=== PATIENT | male | born 1965 | race Caucasian/White ===

== ENCOUNTER 2020-08-24 14:04 | Outpatient (REF) | payer OTHER, SELFPAY | END 2020-08-24 14:05 | disposition home or self-care (01) | LOC: HO.HMGCLDS 14:04 | PROVIDERS: PCP Internal Medicine; Visit Provider Internal Medicine | DX: Z20.828 Contact with and (suspected) exposure to other viral communicable diseases (principal) | CPT/HCPCS: C9803; U0003 ==

== ENCOUNTER 2020-09-04 09:22 | Outpatient (REF) | payer OTHER, SELFPAY | END 2020-09-04 09:23 | disposition home or self-care (01) | LOC: HO.LAB 09:22 | PROVIDERS: PCP Internal Medicine; Visit Provider Internal Medicine | DX: Z20.828 Contact with and (suspected) exposure to other viral communicable diseases (principal) | CPT/HCPCS: C9803; U0003 ==

== ENCOUNTER 2021-01-10 06:18 | Outpatient (REF) | payer OTHER, SELFPAY ==
[2021-01-10 11:12] LABS: MANUAL DIFF FLAG NO
[2021-01-10 11:34] LABS: Glucose Urine UA NEG (NEG); Leukocyte Esterase Urine NEG (NEG); Nitrite Urine NEG (NEG); PH 6.5 (5.0-8.0); Specific Gravity - Urine 1.015 (1.005-1.025); Urine Blood NEG (NEG); Urine Ketones NEG (NEG); Urine Protein NEG (NEG-TRACE)
[2021-01-10 11:36] LABS: Appearance Urine CLEAR; Color Urine YELLOW
[2021-01-10 11:38] LABS: Basophils Absolute Auto 0.1 X10*3/uL (0.0-0.2); Eosinophils Absolute Auto 0.3 X10*3/uL (0.0-0.4); Eosinophils Percent Auto 5.9 % (0-4); Hematocrit 44.1 % (42-52); Imm Gran Abs Auto 0.04 X10*3/uL (0.00-0.03); Imm Gran Pct Auto 0.7 % (0.0-0.4); Lymphocytes Absolute Auto 1.6 X10*3/uL (1.2-4.9); Lymphocytes Percent Auto 27.1 % (20-40); Mean Corpuscular Hemoglobin 31.6 pg (27.0-33.0); Mean Corpuscular Volume 92.8 fL (80-98); Mean Platelet Volume 11.2 fL (9.4-12.4); Monocytes Absolute Auto 0.6 X10*3/uL (0.1-1.2); Neutrophils Absolute Auto 3.2 X10*3/uL (2.0-8.3); Neutrophils Percent Auto 55.3 % (45-73); Platelet Count 259 X10*3/uL (160-400); Red Blood Count 4.75 X10*6/uL (4.60-5.80); Red Cell Distribution Width 12.2 % (11.0-16.0); White Blood Count 5.7 X10*3/uL (4.8-10.8)
[2021-01-10 12:01] LABS: Alanine Aminotransferase 27 U/L (0-40); Albumin Level 4.5 g/dL (3.5-5.0); Alkaline Phosphatase 57 U/L (39-117); Anion Gap 12 (12-20); Aspartate Amino Transferase 21 U/L (5-37); Bilirubin Total 0.9 mg/dL (0.0-1.0); Blood Urea Nitrogen 19 mg/dL (9-16); Carbon Dioxide 29 mmol/L (22-29); Chloride 104 mmol/L (96-108); Cholesterol 175 mg/dL; Estimated Glomerular Filt Rate > 60; Glucose Fasting 94 mg/dL (60-99); HDL Cholesterol 57 mg/dL; LDL Cholesterol Calculated 98 mg/dl; Potassium 4.4 mmol/L (3.3-5.1); Sodium 141 mmol/L (135-145); Total Protein 6.5 g/dL (6.5-8.0); Triglycerides 102 mg/dL; Uric Acid 4.6 mg/dL (3.4-7.0)
[2021-01-10 12:11] LABS: Prostate Specific Antigen 0.79 ng/mL (<0.05-4.0); Thyroid Stimulating Hormone 1.37 uIU/mL (0.32-4.0); Vitamin D 25-OH Total 18.3 ng/mL (>30)
== END 2021-01-10 06:19 | disposition home or self-care (01) ==
LOC: HO.HMGCLDS 06:18
PROVIDERS: PCP Internal Medicine; Visit Provider Internal Medicine
DX: Z00.01 Encounter for general adult medical examination with abnormal findings (principal); Z12.5 Encounter for screening for malignant neoplasm of prostate; E78.00 Pure hypercholesterolemia, unspecified; M1A.00X0 Idiopathic chronic gout, unspecified site, without tophus (tophi)
CPT/HCPCS: 36415; 80053; 80061; 81003; 82306; 84153; 84443; 84550; 85025

== ENCOUNTER 2022-12-30 06:12 | Outpatient (REF) | payer OTHER, SELFPAY ==
[2022-12-30 11:31] LABS: MANUAL DIFF FLAG NO
[2022-12-30 11:38] LABS: Appearance Urine Clear; Color Urine Yellow; Glucose Urine UA Negative (Negative); Leukocyte Esterase Urine Negative (Negative); Nitrite Urine Negative (Negative); Specific Gravity - Urine 1.015 (1.005-1.025); Urine Blood Negative (Negative); Urine Ketones Negative (Negative); Urine Protein Negative (Neg-Trace)
[2022-12-30 11:43] LABS: Bacteria Urine None Seen (None Seen); Hyaline Casts Urine 0-2 /LPF (0-2); RBC Urine 0-2 /HPF (0-2); Squamous Epithelial Cell Urine 0-2 /HPF (0-2); WBC Urine 0-5 /HPF (0-5)
[2022-12-30 11:50] LABS: Basophils Absolute Auto 0.1 X10*3/uL (0.0-0.2); Basophils Percent Auto 1.3 % (0-2); Eosinophils Absolute Auto 0.3 X10*3/uL (0.0-0.4); Eosinophils Percent Auto 5.1 % (0-4); Hematocrit 43.3 % (42.0-52.0); Hemoglobin 14.6 g/dl (14.0-18.0); Imm Gran Abs Auto 0.04 X10*3/uL (0.00-0.03); Imm Gran Pct Auto 0.6 % (0.0-0.4); Lymphocytes Absolute Auto 1.6 X10*3/uL (1.2-4.9); Lymphocytes Percent Auto 25.7 % (20-40); Mean Corpuscular HGB Conc 33.7 g/dl (31.0-36.0); Mean Corpuscular Hemoglobin 31.9 pg (27.0-33.0); Mean Corpuscular Volume 94.7 fL (80.0-98.0); Mean Platelet Volume 11.7 fL (9.4-12.4); Monocytes Absolute Auto 0.5 X10*3/uL (0.1-1.2); Monocytes Percent Auto 7.9 % (2-11); Neutrophils Absolute Auto 3.7 x10*3/uL (2.0-8.3); Neutrophils Percent Auto 59.4 % (45-73); Platelet Count 255 X10*3/uL (160-400); Red Blood Count 4.57 X10*6/uL (4.60-5.80); Red Cell Distribution Width 12.4 % (11.0-16.0); White Blood Count 6.2 X10*3/uL (4.8-10.8)
[2022-12-30 12:16] LABS: Alanine Aminotransferase 30 U/L (0-40); Albumin Level 4.3 g/dL (3.5-5.0); Alkaline Phosphatase 68 U/L (39-117); Anion Gap 12 (12-20); Aspartate Amino Transferase 21 U/L (5-37); Bilirubin Total 1.2 mg/dL (0.0-1.0); Blood Urea Nitrogen 17 mg/dL (9-16); Calcium 9.4 mg/dL (8.4-10.2); Carbon Dioxide 28 mmol/L (22-29); Chloride 106 mmol/L (96-108); Cholesterol 185 mg/dL; Estimated Glomerular Filt Rate > 60; Glucose Fasting 104 mg/dL (60-99); HDL Cholesterol 67 mg/dL; LDL Cholesterol Calculated 105 mg/dl; Potassium 4.7 mmol/L (3.3-5.1); Sodium 141 mmol/L (135-145); Total Protein 6.2 g/dL (6.5-8.0); Triglycerides 68 mg/dL; Uric Acid 4.9 mg/dL (3.4-7.0)
[2022-12-30 12:44] LABS: PSA,Total (Free>4and<10) 1.18 ng/mL (0.00-4.00); Thyroid Stimulating Hormone 1.47 uIU/mL (0.32-4.0); Vitamin D 25-OH Total 45.7 ng/mL (>30)
== END 2022-12-30 06:13 | disposition home or self-care (01) ==
LOC: HO.HMGCLDS 06:12
PROVIDERS: PCP Internal Medicine; Visit Provider Internal Medicine
DX: Z00.00 Encounter for general adult medical examination without abnormal findings (principal); M1A.00X0 Idiopathic chronic gout, unspecified site, without tophus (tophi); E78.00 Pure hypercholesterolemia, unspecified; E55.9 Vitamin D deficiency, unspecified; Z12.5 Encounter for screening for malignant neoplasm of prostate
CPT/HCPCS: 36415; 80053; 80061; 81001; 82306; 84153; 84443; 84550; 85025

== ENCOUNTER 2023-04-20 15:53 | Outpatient (AMB) | payer OTHER, SELFPAY ==
--- NOTE | 2023-04-20 16:01 | MHC.OFFVIS ---
Intake Vital Signs 04/20/23 16:02 Height 5 ft 8 in Weight 208 lb 15.971 oz BMI 31.8 BP 122/72 Blood Pressure Location Lt brachial Position Sitting Pulse 57 Intake Visit Reasons: colonoscopy screening Intake Note: Santana presents in office as a new.patient for a colonoscopy screening PT CC: pt reports having diarrhea pt denies any other GI Issues Camp Program Director Required: No Accompanied by: Self / Same As Patient Allergies indomethacin [From INDOCIN] Allergy (Unknown, Unverified 04/20/23 16:03) HEADACHES, N/V HPI colonoscopy screening HPI Details LAST COLONOSCOPY MARCH OF 2020 Findings: Terminal Ileum ? Normal Cecum ? 8-9 mm sessile polyp removed with cold snare and residual tissue with biopsy forceps, one diverticulum noted Ascending Colon ?Normal, 5-6 mm sessile polyp removed with forceps Transverse Colon - few diverticulae noted Descending Colon ?Normal, x 2 sessile polyps removed with cold snare measured 8-9 mm Sigmoid Colon ? diverticulosis, moderate Rectum ? retroflexion with grade II internal hemorrhoids noted Ano-rectum - internal hemorrhoids seen on forward view Colon preparation: good Impression and Post Procedure Diagnosis: Colonoscopy Findings: diverticulosis polyps internal hemorrhoids Plan: Await pathology results. High fiber diet Repeat Colonoscopy interval based on path results ? in 3-5 years if polyps are adenomatous and 10 years if polyps are hyperplastic. PATHOLOGY RESULTS All 4 polyps tubular adenomas 57 year old? male here today for pre colonoscopy screening.? Patient was sent to us by his PCP.? Last colo was in March of 2020 that showed tubular adenomas, diverticulosis and internal hemorrhoids. Recommendation was made for patient to return for colorectal screening in 3 years. Patient denies any gastrointestinal symptoms in the past or at present.? However he does report occasional loose stools depending on what he eats. Denies any personal or family history of gastrointestinal disease or cancer.? Denies history of difficulty with sedation or anesthesia in the past.? Negative for history of sleep apnea.? Denies any history of cardiac, renal, pulmonary, or hepatic disease.?? No history of infectious? diseases like hepatitis A, B, C, HIV or tuberculosis.? Patient is not on any anticoagulation therapy. [facility] Medical History (Updated 04/20/23 @ 16:33 by Cheryl Mckeon [employer]) Diverticulosis Surgical History Deviated septum Hx of wisdom tooth extraction Family History Father Diabetes 1.5, managed as type 2 Heart disease PPP (primary proliferative polycythemia) Sister Bipolar disorder with psychotic features Parkinson disease Social History Household Members: Family Alcohol intake: current Patient Tobacco Use Status: Former Tobacco user Smoked in Last 30 Days: No Non Cigarette Tobacco use Quit date or years: 10years Use of substances other than those prescribed or required for medical reasons: Yes Substance Use Type: Marijuana Review of Systems Const Denies weight gain and Denies weight loss ENT Reports no additional complaints, Denies dysphagia and Denies odynophagia Card Reports no additional complaints Resp Reports no additional complaints GI Denies abdominal pain, Denies belching, Denies melena, Denies bloating, Denies change in bowel habits, Denies dysphagia, Denies excessive flatus, Denies dyspepsia, Denies heartburn, Denies diarrhea, Reports loose stools (Occasional), Denies nausea, Denies odynophagia and Denies vomiting Reports no additional complaints Musc Reports no additional complaints Neuro Reports no additional complaints Psych Reports no additional complaints Endo Reports no additional complaints Physical Exam Vital Signs: Last Vital Signs Pulse 57 04/20/23 16:02 BP 122/72 04/20/23 16:02 BMI result Body Mass Index 31.8 Const General: healthy appearing, no acute distress and well developed Nutritional Appearance: obese Orientation/consciousness: patient oriented x3 HEENT Head: Yes normal to inspection, Yes normocephalic and Yes atraumatic Face and sinus: Yes normal facial exam Mouth: Normal oral and palatal mucosa present Throat: Yes posterior oropharynx normal, Yes tonsils normal and Yes uvula midline Eyes General: appearance normal, both eyes and all related structures Neck Neck: Yes normal visual inspection, Yes full ROM and Yes trachea midline Thyroid: Thyroid normal Resp Effort & Inspection: normal respiratory effort, able to speak in complete sentences, no tracheal deviation and symmetric chest movement Auscultation: clear to auscultation bilaterally Cardio Rate: regular rate Heart sounds: S1 normal heart sound present and S2 normal heart sound present GI Inspection: Yes normal to inspection, No distended and Yes obesity Palpation (GI): Soft to palpation, not firm, nontender and No hepatosplenomegaly present Auscultation: normal bowel sounds General: Yes no CVA tenderness Back/Spine/Pelvis Back: no CVA tenderness Skin General skin exam: elasticity normal, turgor normal and dry skin Neuro General: patient oriented x3 Psych Appearance: grossly normal Mental Status: mental status grossly normal Speech and movement: Normal speech and movement present Affect: normal affect Assessment & Plan Assessment & Plan (1) Screen for colon cancer: Code(s): Z12.11 - Encounter for screening for malignant neoplasm of colon Plan: Patient denies any GI, cardiac or respiratory symptoms.? Denies any issues with anesthesia in the past.? Denies any history of sleep apnea.? No history infectious diseases in the past or present.? Not on any anticoagulation therapy.? No family or personal history of colon cancer or polyps.? Patient denies melena, hematochezia, unintentional weight loss or ribbon like stools.? Discussed at length the pre-procedure,? prep, diet & medications as well as what to expect prior, during and after the procedure.?? Stressed the importance of good bowel prep. ?Recommended the use of Vaseline or Calmoseptine OTC & baby wipes with bowel movements to promote comfort.? ?Patient verbalizes understanding and agrees to plan of care.? He was given the opportunity to ask questions and all questions answered.? We will see him after the procedure.? (2) Diverticulosis: Code(s): K57.90 - Diverticulosis of intestine, part unspecified, without perforation or abscess without bleeding Plan: Diagnosed with diverticulosis 2020 colonoscopy. Patient also reports some stools patient was encouraged to increase fiber in his diet. Patient will get [id number] fiber supplement. Encouraged patient to stop taking fiber supplements 1 week before the procedure Medications: New bisacodyl (Dulcolax (bisacodyl)) take 2 tabs at noon the day before your colonoscopy 10 mg (2 x 5 mg) PO ONCE 1 day 2 tabs 0RF Z12.11 - Encounter for screening for malignant neoplasm of colon polyethylene glycol 3350 (Miralax) As directed by gastroenterology department at [facility] 238 grams PO ONCE 238 grams 0RF Z12.11 - Encounter for screening for malignant neoplasm of colon Coding Level of Care Code New Pt Level 3 (01504) Diagnoses Screen for colon cancer Z12.11 Diverticulosis K57.90 Time Spent (min) 40 Comment 30 minutes spent with patient and additional 10 minutes spent reviewing his records
[2023-04-20 16:02] VITALS: BP 122/72; PULSE 57; BMI 31.8
== END 2023-04-20 16:32 | disposition home or self-care (01) ==
PROVIDERS: PCP Internal Medicine; Visit Provider Nurse Practitioner Family
DX: Z12.11 Encounter for screening for malignant neoplasm of colon (principal); K57.90 Diverticulosis of intestine, part unspecified, without perforation or abscess without bleeding
CPT/HCPCS: 99203

== ENCOUNTER → 2023-04-20 15:53 | Outpatient (BNVA) | payer SELFPAY | PROVIDERS: PCP Internal Medicine; Visit Provider Nurse Practitioner Family ==

== ENCOUNTER 2023-11-20 09:24 | Day surgery (SDC) | payer OTHER, SELFPAY ==
--- NOTE | 2023-11-19 11:58 | HO.ANESPROP2 ---
HPI - Anesthesia Eval Consult details Narrative: 58yo M for Colonoscopy PMFSH Active Problems Active Problems: All Active Problems (Updated 04/20/23 @ 16:33 by CHETAN Atkins) Diverticulosis (Acute) Past Medical History Medical History (Updated 04/20/23 @ 16:33 by CHETAN Atkins) Diverticulosis Family History Family History Father Diabetes 1.5, managed as type 2 Heart disease PPP (primary proliferative polycythemia) Sister Bipolar disorder with psychotic features Parkinson disease Surgical History Surgical History Deviated septum Hx of wisdom tooth extraction Social History Social History Household Members: Family Alcohol intake: current Patient Tobacco Use Status: Former Tobacco user Substance Use Type: Marijuana Meds Allergies Allergy/AdvReac Type Severity Reaction Status Date / Time indomethacin [From INDOCIN] Allergy Unknown HEADACHES, Unverified 04/20/23 16:03 N/V Home Medications Medication Instructions Recorded Confirmed Last Taken Type allopurinol 300 mg tablet 300 mg PO DAILY 04/17/23 Unknown History cholecalciferol (vitamin D3) 50 50 mcg PO DAILY 04/17/23 Unknown History mcg (2,000 unit) capsule ibuprofen 800 mg tablet 800 mg PO TID 04/17/23 Unknown History ksvjavxdvogw-kdaaraqm-oyuvdy tablet 1 tab PO DAILY 04/17/23 Unknown History Assessment and Plan Assessment Anesthesia Assessment: Chart Reviewed
[2023-11-20 10:13] VITALS: BMI 31.1
--- NOTE | 2023-11-20 10:18 | P.CONAN_ITS ---
[facility] Active Problems Active Problems: All Active Problems (Updated 04/20/23 @ 16:33 by Cheryl Mckeon, [facility]) Diverticulosis (Acute) Past Medical History Medical History Diverticulosis Family History Family History Father Diabetes 1.5, managed as type 2 Heart disease PPP (primary proliferative polycythemia) Sister Bipolar disorder with psychotic features Parkinson disease Surgical History Surgical History Deviated septum Hx of wisdom tooth extraction Social History Social History Household Members: Family Alcohol intake: current Patient Tobacco Use Status: Former Tobacco user Use of substances other than those prescribed or required for medical reasons: Yes Substance Use Type: Marijuana Are you DNR?: No Advance Directives: No Advance Directives Information Provided: Yes Meds Allergies Allergy/AdvReac Type Severity Reaction Status Date / Time indomethacin [From INDOCIN] Allergy Unknown HEADACHES, Unverified 04/20/23 16:03 N/V Active Medications: Current Medications Lactated Ringer's (Lr) 1,000 mls @ 100 mls/hr IVCONT .Q10H [facility] Home Medications Medication Instructions Recorded Confirmed Last Taken Type allopurinol 300 mg tablet 300 mg PO DAILY 04/17/23 Unknown History cholecalciferol (vitamin D3) 50 50 mcg PO DAILY 04/17/23 Unknown History mcg (2,000 unit) capsule ibuprofen 800 mg tablet 800 mg PO TID 04/17/23 Unknown History erawbqbpdtpd-wwxtonua-rojbnk tablet 1 tab PO DAILY 04/17/23 Unknown History Exam Height,Weight and Vital Signs: Height 5 ft 8 in Weight 92.646 kg
[2023-11-20 10:26] VITALS: BP 124/69; PULSE 50; RESP 16; TEMP 36.2; O2SAT 97
[2023-11-20] MEDS: Lactated Ringers 1,000 ML 100 ML IVCONT (10:34)
--- NOTE | 2023-11-20 10:54 | MHC.SHP ---
Pre-Procedural Eval Section A - 24 Hr Update-Section A only Date of Service: 11/20/23 The patient is an INPATIENT: No The patient has been examined within 24 hours of the surgical procedure. The History & Physical has been completed within 30 days and I have reviewed it.: No Section B - Complete if H&P > 30 days Chief Complaint: Surveillance for colon polyps Relevant Family History (Specify if Yes): No Relevant Social History: Tobacco Use (former smoker) Present Medications: see Short Stay Collaborative assessment Medical History: Significant History (Diverticulosis) History of Previous Operations: Relevant previous surgery/procedure and date(s) (Deviated septum Hx of wisdom tooth extraction) Allergies: Allergies Allergy/AdvReac Type Severity Reaction Status Date / Time indomethacin [From INDOCIN] Allergy Unknown HEADACHES, Verified 11/20/23 10:34 N/V Review of Systems Sugical H&P ROS: Negative: Constitution, Cardiovascular, Respiratory and Gastrointestinal Exam Surgical H&P Exam: Normal: Heart, Normal: Lungs, Normal: Extremities and Normal: Abdomen Plan Diagnosis/Plan: Unchanged I have reviewed the history and physical and performed a pertinent physical examination on my patient. No changes have occurred unless specified. Time Spent With Patient Time: Total time managing care of this patient today ____ minutes.
--- NOTE | 2023-11-20 11:47 | P.OP_ITS ---
Operative Note Operative Note Date of Service: 11/20/23 Narrative: COLONOSCOPY TILL CECUM WITH BIOPSY, SNARE POLYPECTOMY AND SUBMUCOSAL INJECTION Pre-op diagnosis: Surveillance for colon polyps Post-op diagnosis:? Colon polyps, diverticulosis, hemorrhoids Endoscopist:? Ramona Osuna MD Anesthesia:?MAC Consent: Indications for the procedure and potential complications of bleeding, perforation, reaction to medications and missed diagnosis were discussed with the patient and informed consent was obtained. Instrument: Olympus CF H 190 L variable stiffness adult colonoscope Monitoring: Vital signs and clinical assessment, intermittent blood pressure monitoring, continuous EKG monitoring, Pulse oximetry and Carbon Dioxide monitoring were done throughout the procedure. Please see anesthesia flowsheet. Colon withdrawl time was 23 minutes. Procedure: The patient was placed in the left lateral decubitis position and pre-procedure medications were administered. After a digital rectal examination of the ano-rectum, the video colonoscope was inserted into the rectum and advanced through the colon to the cecum. The colonoscope was slowly withdrawn in a retrograde panoramic fashion and the colon mucosa was carefully examined including a retroflexed view of the rectum. Findings and interventions are described below. Procedure Difficulty: Without difficulty Findings: Terminal Ileum: Not evaluated Cecum: Normal Ascending Colon: A 4-5 mm sessile polyp in the mid AC - removed with a cold biopsy Transverse Colon: Three 5-7 mm sessile polyps in the proximal transverse colon - removed with a cold snare. A 15 to 18 mm flat polyp - raised with 5 cc of Eleview and removed with a hot stiff snare A 15 to 18 mm sessile polyp in the distal TC at 70 cms - removed with a hot stiff snare Descending Colon: Moderate diverticulosis Sigmoid Colon: Moderate diverticulosis Rectum: Normal Ano-rectum: Moderate internal hemorrhoids Colon preparation: Excellent [place] Bowel Preparation Scale Right colon; 3 Transverse colon: 3 Left colon; 3 (0 = Unprepared colon segment with mucosa not seen due to solid stool that cannot be cleared. 1 = Portion of mucosa of the colon segment seen, but other areas of the colon segment not well seen due to staining, residual stool and/or opaque liquid. 2 = Minor amount of residual staining, small fragments of stool and/or opaque liquid, but mucosa of colon segment seen well. 3 = Entire mucosa of colon segment seen well with no residual staining, small fragments of stool or opaque liquid) Impression and Post Procedure Diagnosis: Colonoscopy Findings: Four small and two medium sized polyps removed Moderate diverticulosis seen in the left colon Moderate hemorrhoids on retroflexed exam. Plan: Await pathology results Patient has an appointment on 12/04/23 in the GI Clinic with Cheryl Mckeon FNP-BC. Repeat Colonoscopy interval based on path results - in 3-5 years if polyps are adenomatous and 10 years if polyps are hyperplastic. Colon polyps and diverticulosis handouts were given in the discharge area
[2023-11-20 12:29] VITALS: BP 112/63; PULSE 65; RESP 16; TEMP 36.2; O2SAT 95
[2023-11-20 12:44] VITALS: BP 125/71; PULSE 53; RESP 18; TEMP 36.5; O2SAT 100
[2023-11-20 12:54] VITALS: BP 130/73; PULSE 45; RESP 16; TEMP 36.5; O2SAT 98
--- NOTE | 2023-11-20 13:33 | HO.POSTANES ---
Post Anesthesia Evaluation Post Anesthesia Evaluation Date of Service: 11/20/23 Vital Signs: Vital Signs Temp Pulse Resp BP Pulse Ox O2 Del Method 11/20/23 12:54 97.7 F 45 L 16 130/73 98 Room Air 11/20/23 12:44 97.7 F 53 18 125/71 100 Room Air 11/20/23 12:29 97.1 F 65 16 112/63 95 Room Air 11/20/23 10:26 97.1 F 50 16 124/69 97 Room Air Anesthesia: Monitored Mental Status: Awake Pain Control: Satisfactory Nausea/Vomiting: None Hydration: Adequate Anesthesia-Related Issues: No Anes. Related Issues
== END 2023-11-20 13:20 | disposition home or self-care (01) ==
PROVIDERS: PCP Internal Medicine; Visit Provider Internal Medicine Gastroenterology
PROC: 0DJD8ZZ Inspection of Lower Intestinal Tract, Via Natural or Artificial Opening Endoscopic (ICD-10-PCS; CPT 45378; principal; 2023-11-20 11:30)
DX: Z12.11 Encounter for screening for malignant neoplasm of colon (principal); D12.2 Benign neoplasm of ascending colon; D12.3 Benign neoplasm of transverse colon; K57.30 Diverticulosis of large intestine without perforation or abscess without bleeding; K64.8 Other hemorrhoids; Z86.010 Personal history of colon polyps
CPT/HCPCS: 45385; 45380; 45381; 88305; J1200; J2704

== ENCOUNTER → 2023-11-20 09:24 | Outpatient (BNV) | payer OTHER, SELFPAY | PROVIDERS: PCP Internal Medicine; Visit Provider Internal Medicine Gastroenterology | DX: Z12.11 Encounter for screening for malignant neoplasm of colon (principal); Z86.010 Personal history of colon polyps; D12.2 Benign neoplasm of ascending colon; D12.3 Benign neoplasm of transverse colon; K57.90 Diverticulosis of intestine, part unspecified, without perforation or abscess without bleeding; K64.8 Other hemorrhoids | CPT/HCPCS: 45380; 45381; 45385 ==

== ENCOUNTER 2023-12-04 14:36 | Outpatient (AMB) | payer OTHER, SELFPAY ==
--- NOTE | 2023-12-04 14:56 | A.OFFVIS_ITS ---
Intake Vital Signs 12/04/23 14:57 Height 5 ft 8 in Weight 207 lb BMI 31.5 BP 111/64 Blood Pressure Location Rt brachial Position Sitting Pulse 65 Pulse Source Monitor Intake Visit Reasons: s/p colon Intake Note: Patient states hes doing well no GI concerns at this moment. Chemical Preparer Required: No Accompanied by: Self / Same As Patient Allergies indomethacin [From INDOCIN] Allergy (Unknown, Verified 12/04/23 14:58) HEADACHES, N/V HPI s/p colon HPI Details LAST VISIT: Screen for colon cancer Patient denies any GI, cardiac or respiratory symptoms.? Denies any issues with anesthesia in the past.? Denies any history of sleep apnea.? No history infectious diseases in the past or present.? Not on any anticoagulation therapy.? No family or personal history of colon cancer or polyps.? Patient denies melena, hematochezia, unintentional weight loss or ribbon like stools.? Discussed at length the pre-procedure,? prep, diet & medications as well as what to expect prior, during and after the procedure.?? Stressed the importance of good bowel prep. ?Recommended the use of Vaseline or Calmoseptine OTC & baby wipes with bowel movements to promote comfort.? ?Patient verbalizes understanding and agrees to plan of care.? He was given the opportunity to ask questions and all questions answered.? We will see him after the procedure.? Diverticulosis Diagnosed with diverticulosis 2020 colonoscopy. Patient also reports some stools patient was encouraged to increase fiber in his diet. Patient will get jxhq-iei-zdiyuvn fiber supplement. Encouraged patient to stop taking fiber supplements 1 week before the procedure Plan Medications New bisacodyl (Dulcolax (bisacodyl)) take 2 tabs at noon the day before your colonoscopy 10 mg (2 x 5 mg) PO ONCE 1 day 2 tabs 0RF Z12.11 - Encounter for screening for malignant neoplasm of colon polyethylene glycol 3350 (Miralax) As directed by gastroenterology department at [facility] 238 grams PO ONCE 238 grams 0RF Z12.11 - Encounter for screening for malignant neoplasm of colon COLONOSCOPY Findings: Terminal Ileum: Not evaluated Cecum: Normal Ascending Colon: A 4-5 mm sessile polyp in the mid AC - removed with a cold biopsy Transverse Colon: Three 5-7 mm sessile polyps in the proximal transverse colon - removed with a cold snare. A 15 to 18 mm flat polyp - raised with 5 cc of Eleview and removed with a hot stiff snare A 15 to 18 mm sessile polyp in the distal TC at 70 cms - removed with a hot stiff snare Descending Colon: Moderate diverticulosis Sigmoid Colon: Moderate diverticulosis Rectum: Normal Ano-rectum: Moderate internal hemorrhoids Colon preparation: Excellent [place] Bowel Preparation Scale Right colon; 3 Transverse colon: 3 Left colon; 3 (0 = Unprepared colon segment with mucos a not seen due to solid stool that cannot be cleared. 1 = Portion of mucosa of the colon segme nt seen, but other areas of the colon segment not well seen due to staining, residual stool and/or opaque liquid. 2 = Minor amount of residual staining, s mall fragments of stool and/or opaque liquid, but mucosa of colon segment seen well. 3 = Entire mucosa of colon segment seen well with no residual staining, small fragments of stool or opaque liquid) Impression and Post Procedure Diagnosis: Colonoscopy Findings: Four small and two medium sized polyps removed Moderate diverticulosis seen in the left colon Moderate hemorrhoids on retroflexed exam. Plan: Repeat Colonoscopy interval based on path results - in 3-5 years if polyps are adenomatous and 10 years if polyps are hyperplastic. PATHOLOGY: Diagnosis A. Colon, transverse, polypectomies (3): Fragments of sessile serrated lesions/polyps; negative for cytologic dysplasia. B. Colon, ascending, polypectomy: Tubular adenoma; negative for high-grade dysplasia or carcinoma. C. Colon, transverse at 70 cm, polypectomy: Fragments of tubular adenoma; negative for high-grade dysplasia or carcinoma TODAY'S VISIT: Patient is here today for follow-up and to discuss colonoscopy results. Patient denies any ill effects from the prep, anesthesia or procedure itself. Patient reports that he has been feeling well since the procedure. As mentioned above in HPI for small and to medium-size polyp found. Tubular adenoma and sessile serrated polyps found without dysplasia or carcinoma. Moderate diverticulosis to left side of the colon in moderate-size internal hemorrhoids. Patient reports that he has been feeling well. Moves his bowels daily. Has not started high-fiber diet yet. Patient denies any melena, hematochezia, unintentional weight loss or ribbon like stools. Patient denies any dyspepsia, dysphagia or odynophagia. Patient denies any GI concerning symptoms today. [facility] Medical History (Updated 12/04/23 @ 15:22 by Cheryl Mckeon [facility]) Tubular adenoma of colon Sessile serrated polyp of colon Diverticulosis Surgical History Deviated septum Hx of wisdom tooth extraction Family History Father Diabetes 1.5, managed as type 2 Heart disease PPP (primary proliferative polycythemia) Sister Bipolar disorder with psychotic features Parkinson disease Social History Household Members: Family Alcohol intake: current Patient Tobacco Use Status: Former Tobacco user Substance Use Type: Marijuana Review of Systems Const Denies weight gain and Denies weight loss ENT Reports no additional complaints, Denies dysphagia and Denies odynophagia Card Reports no additional complaints Resp Reports no additional complaints GI Denies abdominal pain, Denies belching, Denies melena, Denies bloating, Denies change in bowel habits, Denies dysphagia, Denies excessive flatus, Denies dy spepsia, Denies heartburn, Denies diarrhea, Denies loose stools, Denies nausea, Denies odynophagia and Denies vomiting Reports no additional complaints Musc Reports no additional complaints Neuro Reports no additional complaints Psych Reports no additional complaints Endo Reports no additional complaints Physical Exam Vital Signs: Last Vital Signs Pulse 65 12/04/23 14:57 BP 111/64 12/04/23 14:57 BMI result Body Mass Index 31.5 Const General: healthy appearing, no acute distress and well developed Nutritional Appearance: obese Orientation/consciousness: patient oriented x3 Resp Effort & Inspection: normal respiratory effort, able to speak in complete se ntences, no tracheal deviation and symmetric chest movement Auscultation: clear to auscultation bilaterally Cardio Rate: regular rate GI Inspection: Yes normal to inspection, No distended and Yes obesity Palpation (GI): Soft to palpation, not firm, nontender and No hepatosplenomegaly present Auscultation: normal bowel sounds General: Yes no CVA tenderness Back/Spine/Pelvis Back: no CVA tenderness Skin General skin exam: elasticity normal, turgor normal and dry skin Neuro General: patient oriented x3 Psych Appearance: grossly normal Mental Status: mental status grossly normal Assessment & Plan Assessment & Plan (1) Diverticulosis: Code(s): K57.90 - Diverticulosis of intestine, part unspecified, without perforation or abscess without bleeding (2) Sessile serrated polyp of colon: Code(s): D12.6 - Benign neoplasm of colon, unspecified (3) Tubular adenoma of colon: Code(s): D12.6 - Benign neoplasm of colon, unspecified Plan High-fiber diet discussed with patient. List of food high in fiber given to patient. Patient can also start fiber supplements daily. Recommendation was also made for patient to start probiotics. Patient will drink plenty fluids throughout the day. As mentioned above in HPI sessile serrated polyps and tubular adenoma without high-grade dysplasia or carcinoma found. Recommendation is for patient to return for colonoscopy in 3 years per current guidelines. Patient had total of 6 polyps for small and to medium-size polyps found. Patient will be due for colonoscopy in November of 2026, sooner if clinically necessary. Patient is agreeable to this plan. He will follow-up in our office on as needed basis. He was given the opportunity to ask questions and all questions answered. Thank you for allowing me to participate in his care Coding Level of Care Code Est Pt Level 3 (85357) Diagnoses Diverticulosis K57.90 Sessile serrated polyp of colon D12.6 Tubular adenoma of colon D12.6 Time Spent (min) 25 Comment 15 minutes spent with patient and additional 10 minutes spent reviewing his records
[2023-12-04 14:57] VITALS: BP 111/64; PULSE 65; BMI 31.5
== END 2023-12-04 15:26 | disposition home or self-care (01) ==
PROVIDERS: PCP Internal Medicine; Visit Provider Nurse Practitioner Family
DX: K57.90 Diverticulosis of intestine, part unspecified, without perforation or abscess without bleeding (principal); D12.6 Benign neoplasm of colon, unspecified
CPT/HCPCS: 99213

== ENCOUNTER → 2023-12-04 14:36 | Outpatient (BNVA) | payer OTHER, SELFPAY | PROVIDERS: PCP Internal Medicine; Visit Provider Nurse Practitioner Family ==

== ENCOUNTER 2024-01-05 06:18 | Outpatient (REF) | payer OTHER, SELFPAY ==
[2024-01-05 11:46] LABS: MANUAL DIFF FLAG NO
[2024-01-05 12:05] LABS: Appearance Urine Clear; Color Urine Yellow; Glucose Urine UA Negative (Negative); Leukocyte Esterase Urine Negative (Negative); Nitrite Urine Negative (Negative); PH 6.5 (5.0-9.0); Specific Gravity - Urine 1.015 (1.005-1.025); Urine Blood Negative (Negative); Urine Ketones Negative (Negative); Urine Protein Negative (Neg-Trace)
[2024-01-05 12:09] LABS: Bacteria Urine None Seen (None Seen); Hyaline Casts Urine 0-2 /LPF (0-2); RBC Urine 0-2 /HPF (0-2); Squamous Epithelial Cell Urine 0-2 /HPF (0-2); WBC Urine 0-5 /HPF (0-5)
[2024-01-05 12:10] LABS: Basophils Absolute Auto 0.1 X10*3/uL (0.0-0.2); Basophils Percent Auto 0.9 % (0-2); Eosinophils Absolute Auto 0.3 X10*3/uL (0.0-0.4); Eosinophils Percent Auto 5.8 % (0-4); Hematocrit 42.4 % (42.0-52.0); Hemoglobin 14.4 g/dl (14.0-18.0); Imm Gran Abs Auto 0.04 X10*3/uL (0.00-0.03); Imm Gran Pct Auto 0.7 % (0.0-0.4); Lymphocytes Absolute Auto 1.5 X10*3/uL (1.2-4.9); Mean Corpuscular Hemoglobin 31.8 pg (27.0-33.0); Mean Corpuscular Volume 93.6 fL (80.0-98.0); Mean Platelet Volume 11.3 fL (9.4-12.4); Monocytes Absolute Auto 0.6 X10*3/uL (0.1-1.2); Monocytes Percent Auto 9.7 % (2-11); Neutrophils Absolute Auto 3.4 x10*3/uL (2.0-8.3); Neutrophils Percent Auto 57.9 % (45-73); Platelet Count 250 X10*3/uL (160-400); Red Blood Count 4.53 X10*6/uL (4.60-5.80); Red Cell Distribution Width 12.7 % (11.0-16.0); White Blood Count 5.9 X10*3/uL (4.8-10.8)
[2024-01-05 13:04] LABS: PSA,Total (Free>4and<10) 1.47 ng/mL (0.00-4.00)
[2024-01-05 13:06] LABS: Alanine Aminotransferase 22 U/L (0-40); Albumin Level 4.1 g/dL (3.5-5.0); Alkaline Phosphatase 76 U/L (39-117); Anion Gap 11 (12-20); Aspartate Amino Transferase 19 U/L (5-37); Bilirubin Total 0.7 mg/dL (0.0-1.0); Blood Urea Nitrogen 16 mg/dL (9-16); Calcium 9.1 mg/dL (8.4-10.2); Carbon Dioxide 27 mmol/L (22-29); Chloride 107 mmol/L (96-108); Cholesterol 209 mg/dL (<200); Estimated Glomerular Filt Rate > 60; Glucose Fasting 101 mg/dL (60-99); HDL Cholesterol 69 mg/dL (>40); LDL Cholesterol Calculated 128 mg/dL (<100); Potassium 4.2 mmol/L (3.3-5.1); Sodium 141 mmol/L (135-145); Total Protein 6.3 g/dL (6.5-8.0); Triglycerides 64 mg/dL (<150); Uric Acid 4.5 mg/dL (3.4-7.0)
[2024-01-05 13:08] LABS: Thyroid Stimulating Hormone 1.47 uIU/mL (0.32-4.0); Vitamin D 25-OH Total 55.1 ng/mL (>30)
== END 2024-01-05 06:19 | disposition home or self-care (01) ==
LOC: HO.HMGCLDS 06:18
PROVIDERS: PCP Internal Medicine; Visit Provider Internal Medicine
DX: Z00.00 Encounter for general adult medical examination without abnormal findings (principal); Z12.5 Encounter for screening for malignant neoplasm of prostate; E78.00 Pure hypercholesterolemia, unspecified; E55.9 Vitamin D deficiency, unspecified; M1A.00X0 Idiopathic chronic gout, unspecified site, without tophus (tophi)
CPT/HCPCS: 36415; 80053; 80061; 81001; 82306; 84153; 84443; 84550; 85025

== ENCOUNTER 2025-02-20 06:01 | Outpatient (REF) | payer OTHER, SELFPAY ==
[2025-02-20 10:05] LABS: Appearance Urine Clear; Color Urine Yellow; Glucose Urine UA Negative (Negative); Leukocyte Esterase Urine Negative (Negative); Nitrite Urine Negative (Negative); PH 6.5 (5.0-9.0); Urine Blood Negative (Negative); Urine Ketones Negative (Negative); Urine Protein Negative (Neg-Trace)
[2025-02-20 10:17] LABS: Hematocrit 42.3 % (42.0-52.0); Hemoglobin 14.5 g/dl (14.0-18.0); Mean Corpuscular HGB Conc 34.3 g/dl (31.0-36.0); Mean Corpuscular Hemoglobin 31.6 pg (27.0-33.0); Mean Corpuscular Volume 92.2 fL (80.0-98.0); Mean Platelet Volume 11.1 fL (9.4-12.4); Platelet Count 243 X10*3/uL (160-400); Red Blood Count 4.59 X10*6/uL (4.60-5.80); Red Cell Distribution Width 12.7 % (11.0-16.0); White Blood Count 5.6 X10*3/uL (4.8-10.8)
[2025-02-20 10:54] LABS: Alanine Aminotransferase 34 U/L (0-40); Albumin Level 4.3 g/dL (3.5-5.0); Alkaline Phosphatase 71 U/L (39-117); Anion Gap 11 (12-20); Aspartate Amino Transferase 24 U/L (5-37); Bilirubin Direct 0.2 mg/dL (0.0-0.5); Bilirubin Total 0.8 mg/dL (0.0-1.0); Blood Urea Nitrogen 17 mg/dL (9-16); Calcium 9.1 mg/dL (8.4-10.2); Carbon Dioxide 27 mmol/L (22-29); Chloride 106 mmol/L (96-108); Cholesterol 235 mg/dL (<200); Estimated Glomerular Filt Rate > 60; Glucose Random 105 mg/dL (60-115); HDL Cholesterol 70 mg/dL (>40); LDL Cholesterol Calculated 149 mg/dL (<100); Potassium 4.3 mmol/L (3.3-5.1); Sodium 140 mmol/L (135-145); Thyroid Stimulating Hormone 1.35 uIU/mL (0.32-4.0); Total Protein 6.6 g/dL (6.5-8.0); Triglycerides 80 mg/dL (<150)
== END 2025-02-20 06:02 | disposition home or self-care (01) ==
LOC: HO.HMGCLDS 06:01
PROVIDERS: PCP Internal Medicine; Visit Provider Internal Medicine
DX: K57.90 Diverticulosis of intestine, part unspecified, without perforation or abscess without bleeding (principal); Z13.6 Encounter for screening for cardiovascular disorders
CPT/HCPCS: 36415; 80048; 80061; 80076; 81003; 84443; 85027

== ENCOUNTER 2025-02-21 14:54 | Outpatient (AMB) | payer OTHER, SELFPAY ==
--- NOTE | 2025-02-21 14:52 | A.OFFPC_ITS ---
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 Accompanied by: Self / Same As Patient Allergies indomethacin [From INDOCIN] Allergy (Unknown, Verified 02/21/25 15:18) HEADACHES, N/V Medication List - Last Reconciled 02/21/25 by Jus Winkler MD allopurinol 300 mg PO DAILY cholecalciferol (vitamin D3) 50 mcg PO DAILY ibuprofen 800 mg PO TID PRN cdedpxblldkz-viqawazd-gurgkd 1 tab PO DAILY Tobacco use date assessed: 02/21/25 Dental Screening Dental Screen Date: 02/21/25 Did you have a dental visit in the last 12 months?: Yes Did you have a dental problem in the last 6 months where you did not have access to dental care?: No Was dental information given to patient?: Patient has dentist [facility] Medical History (Updated 02/21/25 @ 15:30 by Jus Winkler MD) Hyperlipidemia Tubular adenoma of colon Sessile serrated polyp of colon Diverticulosis Surgical History History of colonoscopy (~11/20/23) Deviated septum Hx of wisdom tooth extraction Family History Father Diabetes 1.5, managed as type 2 Heart disease PPP (primary proliferative polycythemia) Sister Bipolar disorder with psychotic features Parkinson disease Social History Household Members: Family Housing: House Alcohol intake: current Alcohol intake frequency: 3 or more drinks per day Patient Tobacco Use Status: Former Tobacco user Substance Use Type: Marijuana service: No Current occupational status: employed Cognitive needs: No Hearing needs: No Vision needs: Yes (rx glasses) Questionnaire PHQ-9 Over the last 2 weeks, how often have you been bothered by any of the following problems? 1. Little interest or pleasure in doing things: not at all 2. Feeling down, depressed, or hopeless: not at all 3. Trouble falling or staying asleep, or sleeping too much: not at all 4. Feeling tired or having little energy: not at all 5. Poor appetite or overeating: not at all 6. Feeling bad about yourself - or that you are a failure or have let yourself or your family down: not at all 7. Trouble concentrating on things, such as reading the newspaper or watching television: not at all 8. Moving or speaking so slowly that other people could have noticed. Or the opposite - being so fidgety or restless that you have been moving around a lot more than usual: not at all 9. Thoughts that you would be better off or of hurting yourself in some way: not at all Total score: 0 Depression Screening Interpretation: Negative Depression Screening Done: Yes Source: Developed by Drs. Isaias Leong, Karla Gallegos, Raza Zamora and colleagues, with an educational endy from [employer]. Thrive Questionnaire Date Thrive assessed: 02/21/25 I am a: Patient What is your living situation today?: I have a steady place to live Within the past 12 months, did the food you bought not last and you didn't have the money to get more?: Never true Within the past 12 months, did you worry whether your food would run out before you got money to buy more?: Never true Do you have trouble paying for medicines?: No Do you have trouble getting transportation to medical appointments?: No Do you have trouble paying your heating and electricity bill?: No Do you have trouble taking care of your child, family member or friend?: No Do you have trouble with day-to-day activities such as bathing, preparing meals, shopping, managing finances, etc.?: No Are you currently unemployed and looking for a job?: No Are you interested in more education?: No Please select the resources that you would like help with: None Currently or been in a relationship where the following occur: No concerns reported THRIVE Score: 0 AUDIT C Alcohol Use Questionnaire (AUDIT-C) 1. How often do you have a drink containing alcohol?: 4 or more times a week 2. How many drinks containing alcohol do you have on a typical day when you are drinking?: 3 or 4 3. How often do you have six or more drinks on one occasion?: Never Total Score: 5 NATASHA-7 AMB Questionnaire NATASHA-7 Date NATASHA - 7 assessed: 02/21/25 Feeling nervous, anxious, or on edge: 0 = Not at all Not being able to stop or control worryin = Not at all Worrying too much about different things: 0 = Not at all Trouble relaxin = Not at all Being so restless that it is hard to sit still: 0 = Not at all Becoming easily annoyed or irritable: 0 = Not at all Feeling afraid as if something awful might happen: 0 = Not at all Total NATASHA-7 score (0-4 normal; 5-9 mild; 10-14 moderate; 15-21 severe): 0 Source: Developed by Drs. Isaias Leong, Karla Gallegos, Raza Zamora and colleagues, with an educational endy from [employer]. Physical exam (Primary Care) Vital Signs: Last Vital Signs Temp 97.8 F 02/21/25 14:56 Pulse 58 02/21/25 14:56 Resp 14 02/21/25 14:56 BP 128/71 02/21/25 14:56 Pulse Ox 98 02/21/25 14:56 Oxygen Delivery Method Room Air 02/21/25 14:56 Care Plan Goal for BP management: BP is in range. BMI result Body Mass Index 31.2 BMI Assessment/Plan discussion: High BMI High, discussed plan: lifestyle, weight reduction and dietary Tobacco/Smoking Status: Tobacco use Status Tobacco use date assessed 02/21/25 02/21/25 14:54 Patient Tobacco Use Status Former Tobacco user 02/21/25 15:01 PHQ-9: PHQ-9 Score PHQ-9: Total score 0 02/21/25 15:01 Depression Screening Interpretation: Negative Thrive Assessment: Date of Thrive Assessment Date Thrive assessed 02/21/25 02/21/25 15:01 Currently or been in a relationship where the following occur: No concerns reported Advance Care Planning discussion: Exists, not on file Date of discussion: 02/21/25 Who was present: Patient. The form was provided today. Encouraged him to complete it. Forms completed: MOLST Const General: cooperative and healthy appearing Nutritional Appearance: well nourished Orientation/consciousness: patient oriented x3 Limitations: no limitations HENMT Head: Yes normal to inspection Eyes General: appearance normal, both eyes and all related structures Neck Neck: Yes normal visual inspection Chest Chest palpation & inspection: normal palpation of entire chest wall Resp Effort & Inspection: normal respiratory effort Neuro General: patient oriented x3 Coding Level of Care Code New Pt Prev Care 40-64y(56700) Diagnoses Annual physical exam Z00.00 Hyperlipidemia E78.5 Additional Codes Vital Signs *Quality* - Advance Care Planning discussion: Exists, not on file ([id number]) Assessment & Plan Assessment & Plan (1) Annual physical exam: Code(s): Z00.00 - Encounter for general adult medical examination without abnormal findings Plan: BW revd. (2) Hyperlipidemia: Code(s): E78.5 - Hyperlipidemia, unspecified Category: Medical Plan: Fasting bw shows elevated cholesterol. He is reluctant to start statins. Advised moderation in alcohol and encouraged patient to exercise.
[2025-02-21 14:56] VITALS: BP 128/71; PULSE 58; RESP 14; TEMP 36.6; O2SAT 98; BMI 31.2
== END 2025-02-21 15:20 | disposition home or self-care (01) ==
LOC: HO.HMCSH 14:54
PROVIDERS: PCP Internal Medicine; Visit Provider Internal Medicine
DX: Z00.00 Encounter for general adult medical examination without abnormal findings (principal); E78.5 Hyperlipidemia, unspecified

== ENCOUNTER → 2025-02-21 14:54 | Outpatient (BNVA) | payer OTHER, SELFPAY | PROVIDERS: PCP Internal Medicine; Visit Provider Internal Medicine | DX: Z13.89 Encounter for screening for other disorder (principal) ==

== ENCOUNTER 2025-03-16 08:51 | Outpatient (AMB) | payer OTHER, SELFPAY ==
[2025-03-16 08:53] VITALS: BP 129/71; PULSE 55; RESP 12; TEMP 36.6; O2SAT 99; BMI 30.9
--- NOTE | 2025-03-16 08:53 | A.OFFPC_ITS ---
Vital Signs 03/16/25 08:53 Height 5 ft 8 in Weight 203 lb BMI 30.9 BP 129/71 Respiration 12 Pulse 55 Pulse Source Pulse Oximeter Temp 97.9 F Temp Source Temporal Artery Scan Pulse Oximetry (%) 99 Oxygen Delivery Method Room Air Intake Visit Reasons: Lower back pain Negative Spotter Required: No Accompanied by: Self / Same As Patient Allergies indomethacin [From INDOCIN] Allergy (Unknown, Verified 03/16/25 09:36) HEADACHES, N/V Medication List - Last Reconciled 03/16/25 by Tresa Christian PA-C allopurinol 300 mg PO DAILY cholecalciferol (vitamin D3) 50 mcg PO DAILY cyclobenzaprine 10 mg PO Q8H meloxicam 15 mg PO DAILY wczkuqtjdzds-acncfixg-jzfopb 1 tab PO DAILY prednisone 40 mg (2 x 20 mg) PO DAILY 5 days Tobacco use date assessed: 03/16/25 Dental Screening Dental Screen Date: 02/21/25 HPI Lower back pain HPI Details The patient is a 59-year-old male presenting with low back pain. Symptoms commenced approximately two weeks prior without any specific incident, such as heavy lifting or falling. He experiences this pain primarily in the lower back, sometimes radiating to the front, and reports tingling in the legs. Notably, the patient has experienced leg cramps at night, which were addressed previously with magnesium supplementation. There is a concurrent history of gastrointestinal disturbances with occasional blood in the stool, previously evaluated with a colonoscopy revealing diverticulitis. He attributes recent rectal bleeding to this condition but has not consulted his senior tax specialist since the last bleeding episode. His most recent colonoscopy was a year ago, with the previous scheduling following a three-year interval. Also reports abdominal discomfort. He denies any nausea, vomiting, unintentional weight gain or weight loss, black stools, recent straining, urinary bowel incontinence or retention, saddle anesthesias or any other symptoms complaints or concerns related to this Despite the usage of magnesium previously, there has been no current remedy with it, and current preventative efforts include postural changes and standard zorr-grq-xelriuh medication attempts. 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 - No current use of magnesium supplement s. [facility] Medical History Lower abdominal pain Rectal bleeding Pelvic pain Bilateral hip pain Lower back pain Hyperlipidemia Tubular adenoma of colon Sessile serrated polyp of colon Diverticulosis Surgical History History of colonoscopy (~11/20/23) Deviated septum Hx of wisdom tooth extraction Family History Father Diabetes 1.5, managed as type 2 Heart disease PPP (primary proliferative polycythemia) Sister Bipolar disorder with psychotic features Parkinson disease Social History Household Members: Family Housing: House Alcohol intake: current Alcohol intake frequency: 3 or more drinks per day Patient Tobacco Use Status: Former Tobacco user Substance Use Type: Marijuana service: No Current occupational status: employed Cognitive needs: No Hearing needs: No Vision needs: Yes (rx glasses) Questionnaire PHQ-9 Over the last 2 weeks, how often have you been bothered by any of the following problems? 1. Little interest or pleasure in doing things: not at all 2. Feeling down, depressed, or hopeless: not at all 3. Trouble falling or staying asleep, or sleeping too much: not at all 4. Feeling tired or having little energy: not at all 5. Poor appetite or overeating: not at all 6. Feeling bad about yourself - or that you are a failure or have let yourself or your family down: not at all 7. Trouble concentrating on things, such as reading the newspaper or watching television: not at all 8. Moving or speaking so slowly that other people could have noticed. Or the opposite - being so fidgety or restless that you have been moving around a lot more than usual: not at all 9. Thoughts that you would be better off or of hurting yourself in some way: not at all Total score: 0 Depression Screening Interpretation: Negative Depression Screening Done: Yes [id number] - PHQ-9 Billing: Yes Source: Developed by Drs. Isaias Leong, Karla Gallegos, Raza Zamora and colleagues, with an educational endy from [employer]. Thrive Questionnaire Date Thrive assessed: 02/21/25 I am a: Patient What is your living situation today?: I have a steady place to live Within the past 12 months, did the food you bought not last and you didn't have the money to get more?: Never true Within the past 12 months, did you worry whether your food would run out before you got money to buy more?: Never true Do you have trouble paying for medicines?: No Do you have trouble getting transportation to medical appointments?: No Do you have trouble paying your heating and electricity bill?: No Do you have trouble taking care of your child, family member or friend?: No Do you have trouble with day-to-day activities such as bathing, preparing meals, shopping, managing finances, etc.?: No Are you currently unemployed and looking for a job?: No Are you interested in more education?: No Please select the resources that you would like help with: None Currently or been in a relationship where the following occur: No concerns reported THRIVE Score: 0 AUDIT C Alcohol Use Questionnaire (AUDIT-C) 1. How often do you have a drink containing alcohol?: 4 or more times a week 2. How many drinks containing alcohol do you have on a typical day when you are drinking?: 3 or 4 3. How often do you have six or more drinks on one occasion?: Never Total Score: 5 Score Reviewed/Action Taken: No NATASHA-7 AMB Questionnaire NATASHA-7 Date NATASHA - 7 assessed: 02/21/25 Feeling nervous, anxious, or on edge: 0 = Not at all Not being able to stop or control worryin = Not at all Worrying too much about different things: 0 = Not at all Trouble relaxin = Not at all Being so restless that it is hard to sit still: 0 = Not at all Becoming easily annoyed or irritable: 0 = Not at all Feeling afraid as if something awful might happen: 0 = Not at all Total NATASHA-7 score (0-4 normal; 5-9 mild; 10-14 moderate; 15-21 severe): 0 Source: Developed by Drs. Isaias Leong, Karla Gallegos, Raza Zamora and colleagues, with an educational endy from [employer]. Review of Systems Const Details: - Musculoskeletal: Reports low back pain, tingling with cramps in legs, particularly noticeable at night. - Gastrointestinal: Reports blood in stool and abdominal discomfort. - Neurological: Reports tingling in legs. - Integumentary: Reports unexplained bruising in various areas of the body. Physical exam (Primary Care) Vital Signs: Last Vital Signs Temp 97.9 F 03/16/25 08:53 Pulse 55 03/16/25 08:53 Resp 12 03/16/25 08:53 BP 129/71 03/16/25 08:53 Pulse Ox 99 03/16/25 08:53 Oxygen Delivery Method Room Air 03/16/25 08:53 Care Plan Goal for BP management: <140/90 at Goal BMI result Body Mass Index 30.9 BMI Assessment/Plan discussion: High BMI High, discussed plan: lifestyle, weight reduction, dietary, physical activity and alcohol moderation Tobacco/Smoking Status: Tobacco use Status Tobacco use date assessed 03/16/25 03/16/25 08:55 Patient Tobacco Use Status Former Tobacco user 03/16/25 08:55 PHQ-9: PHQ-9 Score PHQ-9: Total score 0 03/16/25 09:08 Depression Screening Interpretation: Negative Thrive Assessment: Date of Thrive Assessment Date Thrive assessed 02/21/25 03/16/25 08:55 Currently or been in a relationship where the following occur: No concerns repo rted Const Other: Appearance: Alert. Oriented X3. No acute distress. Head: Normal external exam. Normocephalic. Atraumatic. Eyes: Pupils are equal, round, and reactive to light. Extraocular movements intact. Conjunctiva and sclera normal. Eyelids normal. Throat: Pharynx normal. Uvula midline. Moist mucous membranes. Neck: Normal inspection. Neck supple. Full range of motion. Cardiovascular: Normal heart rate and rhythm. Heart sound normal. No murmurs noted. Pulses normal throughout. Respiratory: No respiratory distress. Painless inspiration. Abdomen: Soft and nontender. No distention noted. No organomegaly noted. Patient reports lower abdominal pain although not present on my exam at this time. Back: No costovertebral angle tenderness. Full range of motion noted. Patient reports lower back pain intermittently although no midthoracic or lumbar tenderness step-offs or deformities noted. Skin: Skin warm and dry. Normal skin color. Normal skin turgor. No rashes/lesions/lacerations noted. Reports bruising on chest and leg. Extremities: No lower extremity edema. Reports tingling and cramps in legs. Otherwise all other extremities exhibit normal range of motion nontender. No calf tenderness is noted. Neuro: Oriented X 3. No motor deficit. No sensory deficit. Reflexes normal. Reports tingling in legs. Patient has normal steady gait. Results Reviewed Results Reviewed: - Labs: Previous CBC was normal, kidney function normal, cholesterol and thyroid levels within normal limits. - Diagnostics: Recent colonoscopy indicative of diverticulitis with no updated imaging or GI consultation since. Coding Level of Care Code Est Pt Level 4 (02814) Complex EM visit Add On G2211 Diagnoses Lower abdominal pain R10.30 Rectal bleeding K62.5 Pelvic pain R10.2 Bilateral hip pain M25.551; M25.552 Lower back pain M54.50 Additional Codes PHQ-9 - 00796 - PHQ-9 Billing: Yes ([id number]) Assessment & Plan Assessment & Plan (1) Lower abdominal pain: Code(s): R10.30 - Lower abdominal pain, unspecified Category: Medical Plan: CT scan of abdomen pelvis with IV contrast and oral contrast ordered at this time. Along with labs. GI referral. Patient instructed to go to the emergency department symptoms worsen or new symptoms arise. Patient understands agrees with this plan. (2) Rectal bleeding: Code(s): K62.5 - Hemorrhage of anus and rectum Category: Medical Plan: CT scan of abdomen pelvis with IV contrast and oral contrast ordered at this time. Along with labs. GI referral. Patient instructed to go to the emergency department symptoms worsen or new symptoms arise. Patient understands agrees with this plan. (3) Pelvic pain: Code(s): R10.2 - Pelvic and perineal pain Category: Medical Plan: Imaging of pelvis, hips, lumbar spine ordered at this time. Meloxicam given along with Flexeril. Will continue to monitor. (4) Bilateral hip pain: Code(s): M25.551 - Pain in right hip; M25.552 - Pain in left hip Category: Medical Plan: Imaging of pelvis, hips, lumbar spine ordered at this time. Meloxicam given along with Flexeril. Will continue to monitor. (5) Lower back pain: Code(s): M54.50 - Low back pain, unspecified Category: Medical Plan: Imaging of pelvis, hips, lumbar spine ordered at this time. Meloxicam given along with Flexeril. Will continue to monitor. Plan Plan Patient was informed and verbally consented to the use of an ambient scribe for clinic note documentation during this visit. 1. Low Back Pain I propose imaging of the affected area and initiation of an NSAID, Meloxicam, for enhanced inflammatory control. Muscle relaxers are an adjunct for addressing night cramps, noting work-related activity should dictate its administration. 2. Blood In Stool/abd pain I recommend visiting gastroenterology for review of intermittent visible blood, post colonoscopy findings of diverticulitis. I suggest concurrent lab checking to see any swing in blood counts and recommend potential forwarding of a CAT scan if physical states deviate. 3. Osteoarthritis Scheduled imaging and concurrent anti-inflammatory therapy prescribed should appraise this, chiefly diagnosing now with confirmed foot x-ray showing osteoarthritic change. I discussed with the patient that his low back pain might be due to sciatica or osteoarthritis, and investigations will start with x-rays. It is crucial to mitigate scdi-vve-zebulfy drug interactions, so Meloxicam, a stronger NSAID, was chosen, avoiding concurrent use with ibuprofen. We agreed to proceed with follow-ups via imaging results or any acute exacerbation onset. For rectal bleeding, despite prior diverticulitis detected via colonoscopy, I advise re- evaluating with a senior tax specialist urgently if symptoms persist. We also discussed the validity of contrast imaging options for a comprehensive lower body assessment if routine checks remain ambiguous. Orders: Orders XR pelvis min 3V Today M25.551 - Pain in right hip, M25.552 - Pain in left hip, M54.50 - Low back pain, unspecified, R10.2 - Pelvic and perineal pain Complete Blood Count Auto Diff Today Z00.00 - Encounter for general adult medical examination without abnormal findings Magnesium Today Z00.00 - Encounter for general adult medical examination without abnormal findings Liver Panel Today Z00.00 - Encounter for general adult medical examination without abnormal findings Vitamin B12 and Folate Today Z00.00 - Encounter for general adult medical examination without abnormal findings Vitamin D 25-OH Total Today Z00.00 - Encounter for general adult medical examination without abnormal findings Creatine Kinase Total Today Z00.00 - Encounter for general adult medical examination without abnormal findings CT abdomen pelvis w IV con Today K62.5 - Hemorrhage of anus and rectum, M25.551 - Pain in right hip, M25.552 - Pain in left hip, M54.50 - Low back pain, unspecified, R10.2 - Pelvic and perineal pain, R10.30 - Lower abdominal pain, unspecified XR lumbar spine 4V min Today M25.551 - Pain in right hip, M25.552 - Pain in left hip, M54.50 - Low back pain, unspecified, R10.2 - Pelvic and perineal pain XR hips LORI min 3V Today M25.551 - Pain in right hip, M25.552 - Pain in left hip, M54.50 - Low back pain, unspecified, R10.2 - Pelvic and perineal pain C Reactive Protein Today Z00.00 - Encounter for general adult medical examina tion without abnormal findings Hemoglobin A1c Today Z00.00 - Encounter for general adult medical examination without abnormal findings PSA,Total (Free>4and<10) Today Z00.00 - Encounter for general adult medical examination without abnormal findings Comprehensive Met. Panel Today Z00.00 - Encounter for general adult medical examination without abnormal findings ELIEZER Reflex Titer and Pattern Today K62.5 - Hemorrhage of anus and rectum, M25.551 - Pain in right hip, M25.552 - Pain in left hip, M54.50 - Low back pain, unspecified, R10.2 - Pelvic and perineal pain, R10.30 - Lower abdominal pain, unspecified Rheumatoid Factor Today K62.5 - Hemorrhage of anus and rectum, M25.551 - Pain in right hip, M25.552 - Pain in left hip, M54.50 - Low back pain, unspecified, R10.2 - Pelvic and perineal pain, R10.30 - Lower abdominal pain, unspecified Referrals Gastroenterology Referral K62.5 - Hemorrhage of anus and rectum Medications: New cyclobenzaprine 10 mg PO Q8H 30 tabs 0RF muscle spasm meloxicam 15 mg PO DAILY 30 tabs 0RF prednisone 40 mg (2 x 20 mg) PO DAILY 5 days 10 tabs 0RF Patient Instructions: - Take Meloxicam as prescribed, once daily, ensuring it is not taken simultaneously with ibuprofen. - Use prescribed muscle relaxant only when not working or driving. - If bleeding persists, consult gastroenterology for potential early colonoscopy. - Complete x-rays as scheduled and follow prescribed blood work for anemia checks. - If pain intensifies or there is a loss of sensation or control in limbs, seek emergency care. - Monitor symptoms and report any significant changes during the follow-up visit. - Maintain posture awareness and perform recommended low impact exercises.
== END 2025-03-16 09:38 | disposition home or self-care (01) ==
LOC: HO.HMCSH 08:51
PROVIDERS: PCP Internal Medicine; Visit Provider Physician Assistant Medical
DX: R10.30 Lower abdominal pain, unspecified (principal); K62.5 Hemorrhage of anus and rectum; R10.2 Pelvic and perineal pain; M25.551 Pain in right hip; M25.552 Pain in left hip; M54.50 Low back pain, unspecified

== ENCOUNTER 2025-03-16 08:51 | Outpatient (REF) | payer OTHER, SELFPAY ==
--- NOTE | ~2025-03-16 | XR_ITS ---
EXAMINATION: XR LUMBOSACRAL SPINE CLINICAL INFORMATION: R10.2 - Pelvic and perineal pain COMPARISON: None available. TECHNIQUE: 5 views of the lumbar spine, inclusive of bilateral oblique views, were obtained. FINDINGS: There is no scoliosis. There is a normal lumbar lordosis. There is no subluxation. There are no fractures, compression deformities, or suspicious bone lesions. Moderate to severe disc degeneration evident L5-S1. There is otherwise only mild disc degeneration at L5 and above. There is normal facet alignment. Mild degenerative facet changes L4-S1 bilaterally. No evidence of pars defects. There are early vascular calcifications in the soft tissues. Soft tissues otherwise normal. XR/XR lumbar spine 4V min IMPRESSION: 1. No acute bony abnormalities. 2. Mild degenerative spondylosis relatively confined to L4-S1, worst at L5-S1. Electronically signed by: Trevor Arreola MD 03/16/2025 11:28 AM EDT
--- NOTE | ~2025-03-16 | XR_ITS ---
EXAMINATION: XR PELVIS CLINICAL INFORMATION: R10.2 - Pelvic and perineal pain COMPARISON: None. TECHNIQUE: AP and bilateral oblique views of the pelvis. FINDINGS: No fracture, dislocation, or suspicious bone lesion. Mild arthritic changes in the left greater than right hip joints. Normal anatomical alignment. SI joints appear normal without evidence of sclerosis, or erosions. No arthropathy. No soft tissue abnormalities. XR/XR pelvis min 3V IMPRESSION: 1. No acute findings of the pelvis. 2. 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 3. Normal-appearing SI joints. Electronically signed by: Trevor Arreola MD 03/16/2025 11:23 AM EDT
--- NOTE | ~2025-03-16 | XR_ITS ---
EXAMINATION: XR BILATERAL HIPS WITH AP PELVIS CLINICAL INFORMATION: M54.50 - Low back pain, unspecified COMPARISON: None available. TECHNIQUE: AP view of the pelvis and single views of each hip were obtained. FINDINGS: Mild degenerative arthritis in the left greater than right hip joints. There is normal bilateral hip joint alignment. No evidence of AVN. Normal acetabular coverage. Normal femoral head contours. No soft tissue abnormalities. XR/XR hips LORI min 3V IMPRESSION: 1. No acute bony abnormalities. 2. 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 Electronically signed by: Trevor Arreola MD 03/16/2025 11:25 AM EDT
[2025-03-16 13:33] LABS: MANUAL DIFF FLAG NO
[2025-03-16 13:40] LABS: Basophils Absolute Auto 0.1 X10*3/uL (0.0-0.2); Basophils Percent Auto 1.1 % (0-2); Eosinophils Absolute Auto 0.1 X10*3/uL (0.0-0.4); Eosinophils Percent Auto 2.1 % (0-4); Hematocrit 42.3 % (42.0-52.0); Hemoglobin 14.6 g/dl (14.0-18.0); Imm Gran Abs Auto 0.03 X10*3/uL (0.00-0.03); Imm Gran Pct Auto 0.5 % (0.0-0.4); Lymphocytes Absolute Auto 1.1 X10*3/uL (1.2-4.9); Lymphocytes Percent Auto 20.4 % (20-40); Mean Corpuscular HGB Conc 34.5 g/dl (31.0-36.0); Mean Corpuscular Hemoglobin 31.8 pg (27.0-33.0); Mean Corpuscular Volume 92.2 fL (80.0-98.0); Mean Platelet Volume 10.9 fL (9.4-12.4); Monocytes Absolute Auto 0.4 X10*3/uL (0.1-1.2); Monocytes Percent Auto 7.7 % (2-11); Neutrophils Absolute Auto 3.8 x10*3/uL (2.0-8.3); Neutrophils Percent Auto 68.2 % (45-73); Platelet Count 245 X10*3/uL (160-400); Red Blood Count 4.59 X10*6/uL (4.60-5.80); Red Cell Distribution Width 12.8 % (11.0-16.0); White Blood Count 5.6 X10*3/uL (4.8-10.8)
[2025-03-16 13:58] LABS: Estimated Average Glucose 103 mg/dL; Hemoglobin A1c % 5.2 % (<6.0)
[2025-03-16 14:44] LABS: Alanine Aminotransferase 28 U/L (0-40); Albumin Level 4.6 g/dL (3.5-5.0); Alkaline Phosphatase 68 U/L (39-117); Anion Gap 12 (12-20); Aspartate Amino Transferase 28 U/L (5-37); Bilirubin Direct 0.3 mg/dL (0.0-0.5); Bilirubin Total 0.8 mg/dL (0.0-1.0); Blood Urea Nitrogen 19 mg/dL (9-16); C Reactive Protein < 0.10 mg/dL (< or = 0.50); Calcium 9.6 mg/dL (8.4-10.2); Carbon Dioxide 28 mmol/L (22-29); Chloride 106 mmol/L (96-108); Estimated Glomerular Filt Rate > 60; Glucose Random 133 mg/dL (60-115); Magnesium 2.2 mg/dL (1.6-2.6); Potassium 4.6 mmol/L (3.3-5.1); Sodium 141 mmol/L (135-145); Total Protein 6.6 g/dL (6.5-8.0)
[2025-03-16 14:56] LABS: Rheumatoid Factor < 13.0 IU/mL (<15.0)
[2025-03-16 15:01] LABS: PSA,Total (Free>4and<10) 1.86 ng/mL (0.00-4.00)
[2025-03-16 15:04] LABS: Vitamin D 25-OH Total 67.8 ng/mL (>30)
[2025-03-16 15:17] LABS: Folate 13.3 ng/mL (> or = 4.0); Vitamin B12 492 pg/mL (200-900)
[2025-03-21 09:29] LABS: Anti Nuclear Antibody Screen NEGATIVE (NEGATIVE)
== END 2025-03-16 08:52 | disposition home or self-care (01) ==
LOC: HO.HMGCX 08:51
PROVIDERS: PCP Internal Medicine; Visit Provider Physician Assistant Medical
DX: M54.50 Low back pain, unspecified (principal); R10.30 Lower abdominal pain, unspecified; K62.5 Hemorrhage of anus and rectum; R10.2 Pelvic and perineal pain; M25.552 Pain in left hip; M25.551 Pain in right hip; Z00.00 Encounter for general adult medical examination without abnormal findings; Z12.5 Encounter for screening for malignant neoplasm of prostate; Z13.1 Encounter for screening for diabetes mellitus
CPT/HCPCS: 36415; 72110; 72190; 73522; 80053; 82248; 82306; 82550; 82607; 82746; 83036; 83735; 84153; 85025; 86038; 86140; 86431; 96127

== ENCOUNTER → 2025-03-16 10:11 | Outpatient (BNV) | payer OTHER, SELFPAY | PROVIDERS: PCP Internal Medicine; Visit Provider Radiology Diagnostic Radiology | DX: R10.2 Pelvic and perineal pain (principal); M54.50 Low back pain, unspecified | CPT/HCPCS: 72110; 72190; 73522 ==

== ENCOUNTER 2025-05-12 06:23 | Outpatient (REF) | payer OTHER, SELFPAY ==
--- NOTE | ~2025-05-12 | CT_ITS ---
EXAMINATION: CT ABDOMEN AND PELVIS WITH CONTRAST CLINICAL INFORMATION: Hemorrhage of anus and rectum. COMPARISON: None available. TECHNIQUE: Multidetector volumetric images were obtained from the superior aspect of the liver through the pubic symphysis following administration 85 mL of Omnipaque 350 intravenous contrast. Sagittal and coronal reformatted images were obtained on the technologist's workstation. Oral contrast: Yes This CT examination was performed using dose optimization techniques as appropriate, variously including the following: *Automated exposure control *Adjustment of mA and/or kV according to patient size (this includes techniques or standardized protocols for targeted exams where dose is matched to indication/reason for exam; i.e. extremities or head) *Use of iterative reconstruction technique. DLP: 480 mGy centimeter. FINDINGS: LUNG BASES: No acute airspace disease or gross pulmonary nodules in the [id number]. LIVER, GALLBLADDER, AND BILIARY TREE: Liver measures 16 cm. There are multifocal, lobulated and well-defined hypodense lesions throughout the liver parenchyma measuring 12 Hounsfield units, the largest measures 1.6 cm. Main portal veins, hepatic veins and intrahepatic portion of the IVC are patent. No pericholecystic fluid collection or gallbladder wall thickening. No intrahepatic or extrahepatic biliary ductal dilatation. PANCREAS: No focal lesion. No peripancreatic fluid collection. No main pancreatic ductal dilatation. SPLEEN: 10 cm. No focal lesion. ADRENAL GLANDS: No nodular lesion. KIDNEYS AND URETERS: No hydronephrosis. No gross nephrolithiasis. Normal enhancement pattern of the renal parenchyma. No enhancing lesion. BLADDER: Fluid-filled. GASTROINTESTINAL TRACT: Abundant stool in the large intestine. No intestinal wall thickening. No intestinal obstruction pattern. No pneumatosis intestinalis. No gross diverticulum. Appendix is normal. No ascites. No pneumoperitoneum Terminal ileum is normal. ABDOMINAL WALL: No gross umbilical hernia. LYMPH NODES: No lymphadenopathy, mesenteric or retroperitoneal. VASCULAR: Mixed plaques throughout the abdominal aorta wall and iliac arteries without gross aneurysm or dissection. Calcified plaques in the descending thoracic aorta. Calcified plaques in the origin of the celiac trunk and SMA. There is a prominent IVC at the iliac vein junctions. Questionable intraluminal filling defects within the external iliac veins into the common femoral veins. PELVIC VISCERA: Not enlarged. OSSEOUS STRUCTURES: Degenerative changes in the coxofemoral joints and sacroiliac joints. Spondylosis at L5-S1 resulting in grade 1 retrolisthesis and bilateral neuroforamina stenosis. There is spondylosis at L4-5 with likely central spinal canal and bilateral neuroforamina stenosis. CT/CT abdomen pelvis w IV con IMPRESSION: Concerning deep venous thrombosis both lower extremities to the inferior vena cava. Recommend dedicated DVT ultrasound both lower extremities. Multiple hypodense hepatic lesions. Consider hepatic cysts versus hemangiomata. Fleischner guidelines were followed. Electronically signed by: Luis Gomez MD 05/12/2025 09:32 AM EDT
[2025-05-12] MEDS: iohexoL 350 MG/ML 100 ML INFUS..BTL IV (08:46)
[2025-05-12] MEDS: Barium Sulfate Oral (Berry) 450 ML ORAL.SUSP 900 ML PO (08:47)
[2025-05-12 12:44] LABS: Creatinine POC 1.1 mg/dL (0.5-1.4); GFR POC > 60
== END 2025-05-12 06:24 | disposition home or self-care (01) ==
LOC: HO.CT 06:23
PROVIDERS: PCP Internal Medicine; Visit Provider Physician Assistant Medical
DX: K62.5 Hemorrhage of anus and rectum (principal); M25.551 Pain in right hip; M25.552 Pain in left hip; M54.50 Low back pain, unspecified; R10.30 Lower abdominal pain, unspecified; R10.2 Pelvic and perineal pain
CPT/HCPCS: 74177; 82565; Q9967

== ENCOUNTER → 2025-05-12 06:24 | Outpatient (BNV) | payer OTHER, SELFPAY | PROVIDERS: PCP Internal Medicine; Visit Provider Radiology Diagnostic Radiology | DX: K62.5 Hemorrhage of anus and rectum (principal); R22.43 Localized swelling, mass and lump, lower limb, bilateral | CPT/HCPCS: 74177; 93970 ==

== ENCOUNTER 2025-05-12 17:03 | Emergency (ER) | payer OTHER, SELFPAY ==
--- NOTE | ~2025-05-12 | US_ITS ---
CLINICAL HISTORY: ?bilat lower extrmity DVT from CT AP Venous duplex ultrasound bilateral lower extremity Comparison: None provided Findings: The visualized deep veins are fully compressible with normal Doppler color flow and spectral tracings. Bilateral lymph nodes noted in the right groin measuring 1.6 x 0.4 x 0.8 cm and in the left groin measuring 1.2 x 0.6 x 1.4 cm synovial reactive Left popliteal fossa cyst with septations measuring 2.6 x 1.3 x 1.7 cm. IMPRESSION: Negative for bilateral lower extremity deep vein thrombosis. Additional findings described This document has been electronically signed by: Hernando Hernandez MD on 05/12/2025 18:22:32
[2025-05-12 17:07] VITALS: BP 148/79; PULSE 64; RESP 16; TEMP 36.4; O2SAT 98; BMI 30.4
--- NOTE | 2025-05-12 17:13 | ED_ITS ---
HPI - General Adult General Chief complaint: Extremity Injury, Lower Stated complaint: ?blood clot in legs Time Seen by Provider: 05/12/25 17:50 Source: patient Mode of arrival: ambulatory Limitations: no limitations History of Present Illness ED Provider: HPI narrative: Sent by PCP for abnormal CT findings concern for extensive DVTs, no chest pain no shortness of breath no fevers or chills, he has intermittent leg cramps but he does also walk quite a bit at work up to 20,000 steps a day. No prior history of clots or blood cancers. Related Data Home Medications ?Medication ?Instructions ?Recorded ?Confirmed cholecalciferol (vitamin D3) 50 50 mcg PO DAILY 03/16/25 mcg (2,000 unit) capsule rspoomumssve-mycknplb-[id number] tablet 1 tab PO DAILY 05/0303/16/25 Previous Rx's ?Medication ?Instructions ?Recorded allopurinol 300 mg tablet 300 mg PO DAILY #90 tabs 04/05 cyclobenzaprine 10 mg tablet 10 mg PO Q8H muscle spasm #30 tabs 03/16/25 hydrocortisone 2.5 % topical 1 appl topical BID-TID WA N itching 03/16/25 ointment #454 grams prednisone 20 mg tablet 40 mg (2 x 20 mg) PO DAILY 5 days 03/16/25 #10 tabs meloxicam 15 mg tablet 15 mg PO DAILY 3 months #90 tabs 04/12/25 Allergies Allergy/AdvReac Type Severity Reaction Status Date / Time indomethacin (From INDOCIN) Allergy Unknown HEADACHES, Verified 05/12/25 17:08 N/V Review of Systems 2 Constitutional: Constitutional: Reports as per HPI [facility] Past Medical History Medical History Lower abdominal pain Rectal bleeding Pelvic pain Bilateral hip pain Lower back pain Hyperlipidemia Tubular adenoma of colon Sessile serrated polyp of colon Diverticulosis Surgical History History of colonoscopy (~11/20/23) Deviated septum Hx of wisdom tooth extraction Family History Family History Father Diabetes 1.5, managed as type 2 Heart disease PPP (primary proliferative polycythemia) Sister Bipolar disorder with psychotic features Parkinson disease Social History Social History Household Members: Family Housing: House Alcohol intake: current Alcohol intake frequency: 3 or more drinks per day Patient Tobacco Use Status: Former Tobacco user Substance Use Type: Marijuana Advance Directives: No Advance Directives Information Provided: No service: No Current occupational status: employed Cognitive needs: No Hearing needs: No Vision needs: Yes (rx glasses) Physical Exam ED Vital Signs: Vital Signs - 24 hr 05/12/25 17:07 05/12/25 17:42 Temperature 97.6 F Pulse Rate 64 82 Respiratory Rate 16 17 Blood Pressure 148/79 H 131/81 Pulse Oximetry 98 96 Oxygen Delivery Method Room Air Room Air BMI result Body Mass Index 30.4 Const Other: * Gen: ?Overall well-appearing patient * HEENT: PERRLA, EOMI, MMM, * Neck: Supple, no LAD * CV: RRR, no obvious murmurs appreciated * Resp: ?No wheezing rales rhonchi no stridor moving air well * Abd: ?Bowel sounds are present, no tenderness no rebound no rigidity * MSK: FROM, strength 5/5 all extremities, palpable proximal and distal pulses * Skin: Warm, dry, intact, * Neuro: ?Alert and oriented x3, moving upper and lower extremities symmetrically, no obvious facial asymmetry noted Course Course Course Narrative: This is an RME performed by Maddi Del Angel CUST[employer]ER SERVICES SUPERVISOR: Additional HPI, ROS, PE not included below will be deferred to primary provider. Patient is a 59 year old male presents emergency department for evaluation he admits that he has been having cramping to the bilateral extremities for years which he has been taking magnesium. Seen in primary care office 03/16/2025 endorsing bilateral hip pain, abdominal discomfort, they had ordered a CT of the abdomen and pelvis due to concern for bleeding from the rectum intermittently and history of diverticulitis, was advised to come to emergency department due to concern for bilateral lower extremity DVTs. CT/CT abdomen pelvis w IV con IMPRESSION: Concerning deep venous thrombosis both lower extremities to the inferior vena cava. Recommend dedicated DVT ultrasound both lower extremities. Multiple hypodense hepatic lesions. Consider hepatic cysts versus hemangiomata. Plan: Serum labs, coagulation studies, bilateral lower extremity venous duplex ultrasound Medical Decision Making Medical Decision Making MDM Narrative: Presenting with concern for DVT to bilateral lower extremities, longstanding history of cramps in his thighs, screened for any risk for PE/DVT, or any lymphoma or hypercoagulable state Reviewed CT results, official ultrasound ordered, we will update patient with the results Otherwise he is well-appearing, no hypoxia tachycardic did not feel further imaging such as CTA is indicated at this time Differential Diagnosis Differential Diagnoses: The differential diagnosis associated with the presentation includes (DVT, PE, blood dyscrasias, hypercoagulable state) Admission/Observation 2022 Emergency Medicine Coding Guide from [facility] on 05/12/2025 All calculations should be rechecked by clinician prior to use RESULT SUMMARY: 4 Estimated Level of Service Problems: Moderate (4) Risk: Low (3) Data: Extensive (5) NARRATIVE MDM: This patient's problem complexity is Moderate as patient: has a new undiagnosed problem with uncertain prognosis but that could be serious. This patient's risk is Low due to: overall presentation requiring evaluation for a potentially Low-risk process. This patient's data complexity is Extensive due to: -multiple tests ordered -independent historian used to support history -independent interpretation of imaging or EKG INPUTS: Number and Complexity ?> 5 = 4: undiagnosed new problem, uncertain outcome (e) Risk level ?> 2 = Low Tests ordered ?> 2 = 2 Tests results reviewed (excluding labs) ?> 1 = 1 Prior external notes reviewed ?> 0 = 0 Assessment requiring and independent historian ?> 1 = Yes Independent interpretation of tests ?> 1 = Yes Discussed management/test interpretation w/external professional ?> 0 = No Lab Data [facility] Lab Attestation statement: I reviewed the patient's lab results. 05/12/25 17:36 05/12/25 17:36 Labs: Lab Results 05/12/25 Range/Units 17:36 WBC 8.5 (4.8-10.8) X10*3/uL RBC 4.36 L (4.60-5.80) X10*6/uL Hgb 14.4 (14.0-18.0) g/dl Hct 39.5 L (42.0-52.0) % MCV 90.6 (80.0-98.0) fL MCH 33.0 (27.0-33.0) pg MCHC 36.5 H (31.0-36.0) g/dl RDW 12.7 (11.0-16.0) % Plt Count 256 (160-400) X10*3/uL MPV 10.1 (9.4-12.4) fL Immature Gran % (Auto) 0.5 H (0.0-0.4) % Neut % (Auto) 70.9 (45-73) % Lymph % (Auto) 18.1 L (20-40) % [place] % (Auto) 7.3 (2-11) % Eos % (Auto) 2.3 (0-4) % Baso % (Auto) 0.9 (0-2) % Lymph # (Auto) 1.5 (1.2-4.9) X10*3/uL [place] # (Auto) 0.6 (0.1-1.2) X10*3/uL Eos # (Auto) 0.2 (0.0-0.4) X10*3/uL Baso # (Auto) 0.1 (0.0-0.2) X10*3/uL Abs Immat Gran (auto) 0.04 H (0.00-0.03) X10*3/uL Absolute Neuts (auto) 6.0 (2.0-8.3) x10*3/uL Absolute Nucleated RBC 0.000 (0.0-0.012) X10*3/uL Nucleated RBC % (auto) 0.0 (0.0-0.2) /100WBC PT 11.3 (10.9-12.4) SEC INR 1.0 (0.9-1.1) Sodium 140 (135-145) mmol/L Potassium 4.1 (3.3-5.1) mmol/L Chloride 107 (96-108) mmol/L Carbon Dioxide 27 (22-29) mmol/L Anion Gap 10 L (12-20) BUN 19 H (9-16) mg/dL Creatinine 1.05 (0.5-1.4) mg/dL Estim Creat Clear Calc 81.8 Estimated GFR > 60 Random Glucose 95 (60-115) mg/dL Calcium 9.1 (8.4-10.2) mg/dL Total Bilirubin 0.8 (0.0-1.0) mg/dL AST 30 (5-37) U/L ALT 33 (0-40) U/L Alkaline Phosphatase 83 (39-117) U/L Total Protein 6.7 (6.5-8.0) g/dL Albumin 4.7 (3.5-5.0) g/dL Independent Interpretation I performed an independent interpretation of an: Ultrasound (I did not appreciate any noncompressible vessels and there is present blood flow on the ultrasound images) Radiology Impression Discussion of test interpretation with radiology: I have reviewed the radiologist's reading. (Concerning deep venous thrombosis both lower extremities to the inferior vena cava. Recommend dedicated DVT ultrasound both lower extremities. Multiple hypodense hepatic lesions. Consider hepatic cysts versus hemangiomata.) Discharge Plan Discharge Clinical Impression: Abnormal finding on CT scan Patient Disposition: Home, Self-Care Additional Instructions: Ultrasound read: Negative for bilateral lower extremity deep vein thrombosis. That provided you with a report of the CT to follow up with your PCP regarding liver findings On otherwise reassured by physical examination new vital signs Prescriptions: No Action allopurinol 300 mg tablet 300 mg PO DAILY Qty: 90 1RF hydrocortisone 2.5 % ointment 1 appl topical BID-TID PRN (Reason: itching) Qty: 454 1RF meloxicam 15 mg tablet 15 mg PO DAILY 90 Days Qty: 90 3RF cholecalciferol (vitamin D3) 50 mcg (2,000 unit) capsule 50 mcg PO DAILY [id number]-[id number]-[id number] Tablet 1 tab PO DAILY cyclobenzaprine 10 mg tablet 10 mg PO Q8H Qty: 30 0RF prednisone 20 mg tablet 40 mg PO DAILY 5 Days Qty: 10 0RF Print Language: Spanish
[2025-05-12 17:42] VITALS: BP 131/81; PULSE 82; RESP 17; O2SAT 96
[2025-05-12 17:45] LABS: MANUAL DIFF FLAG NO
[2025-05-12 17:46] LABS: Hematocrit 39.5 % (42.0-52.0); Hemoglobin 14.4 g/dl (14.0-18.0); Imm Gran Abs Auto 0.04 X10*3/uL (0.00-0.03); Imm Gran Pct Auto 0.5 % (0.0-0.4); Lymphocytes Absolute Auto 1.5 X10*3/uL (1.2-4.9); Mean Corpuscular HGB Conc 36.5 g/dl (31.0-36.0); Mean Corpuscular Hemoglobin 33.0 pg (27.0-33.0); Mean Corpuscular Volume 90.6 fL (80.0-98.0); NRBC Abs Auto 0.000 X10*3/uL (0.0-0.012); NRBC Pct Auto 0.0 /100WBC (0.0-0.2); Platelet Count 256 X10*3/uL (160-400); Red Blood Count 4.36 X10*6/uL (4.60-5.80); White Blood Count 8.5 X10*3/uL (4.8-10.8)
[2025-05-12 17:52] LABS: INTERNATIONAL NORM RATIO 1.0 (0.9-1.1); Prothrombin Time 11.3 SEC (10.9-12.4)
[2025-05-12 17:59] LABS: Alanine Aminotransferase 33 U/L (0-40); Albumin Level 4.7 g/dL (3.5-5.0); Alkaline Phosphatase 83 U/L (39-117); Anion Gap 10 (12-20); Aspartate Amino Transferase 30 U/L (5-37); Blood Urea Nitrogen 19 mg/dL (9-16); Calcium 9.1 mg/dL (8.4-10.2); Carbon Dioxide 27 mmol/L (22-29); Chloride 107 mmol/L (96-108); Creatinine Clr Calc Pharmacy 81.8; Estimated Glomerular Filt Rate > 60; Potassium 4.1 mmol/L (3.3-5.1); Sodium 140 mmol/L (135-145); Total Protein 6.7 g/dL (6.5-8.0)
[2025-05-12 18:50] VITALS: BP 00/00; PULSE 0; RESP 0; TEMP -17.7; TEMP 0; O2SAT 0
== END 2025-05-12 18:50 | disposition home or self-care (01) ==
PROVIDERS: Nurse Practitioner Family; Emergency Provider Emergency Medicine; PCP Internal Medicine
DX: R93.89 Abnormal findings on diagnostic imaging of other specified body structures (principal); M79.662 Pain in left lower leg; M79.661 Pain in right lower leg; R25.2 Cramp and spasm
CPT/HCPCS: 36415; 80053; 85025; 85610; 93970; 99284

== ENCOUNTER 2025-05-16 15:37 | Outpatient (AMB) | payer OTHER, SELFPAY ==
--- NOTE | 2025-05-16 15:54 | MHC.PC.OV ---
Vital Signs 05/16/25 15:55 Height 5 ft 8 in Weight 201 lb BMI 30.6 BP 138/80 Respiration 14 Pulse 54 Pulse Source Pulse Oximeter Pulse Oximetry (%) 98 Oxygen Delivery Method Room Air Intake Visit Reasons: 2 month follow up Registered Nurse Maternity Required: No Accompanied by: Self / Same As Patient Allergies indomethacin (From INDOCIN) Allergy (Unknown, Verified 05/16/25 17:28) HEADACHES, N/V Medication List - Last Reconciled 05/16/25 by Tresa Christian PA-C allopurinol 300 mg PO DAILY atorvastatin (Lipitor) 10 mg PO BEDTIME cholecalciferol (vitamin D3) 50 mcg PO DAILY cyclobenzaprine 10 mg PO Q8H hydrocortisone 2.5% 1 appl topical BID-TID PRN ufuljuujlwdt-vqjloqqa-qapqfe 1 tab PO DAILY Tobacco use date assessed: 03/16/25 Dental Screening Dental Screen Date: 02/21/25 HPI 2 month follow up HPI Details The patient is a 59-year-old male presenting with abdominal pain and follow-up on previous imaging results. The patient reports chronic pain in the right hip, which was evaluated with x-rays showing degenerative arthritis. The pain is persistent but not worsening, and the patient has declined physical therapy. The patient also has degenerative spondylosis at L4-S1, with more severe changes at L5-S1, contributing to his discomfort. Recent imaging revealed enlarged lymph nodes in the right and left groin, which were determined to be reactive and not due to deep vein thrombosis. The patient was advised to follow up for further evaluation of these findings. The patient has multiple hypodense hepatic lesions, suspected to be either hepatic cysts or hemangiomas. Liver enzymes are normal, and there is no family history of liver cancer. The patient has mixed plaques in the abdominal aorta and iliac arteries, without aneurysm, which may contribute to his leg discomfort. He experiences muscle aches after physical activity, which may be related to vascular issues. A cyst was also noted near the knee, but no further details were provided. Social History - Employment: Engages in significant physical activity at work, including walking and climbing ladders. 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 Atherosclerosis of abdominal aorta Lower abdominal pain Rectal bleeding Pelvic pain Bilateral hip pain Lower back pain Hyperlipidemia Tubular adenoma of colon Sessile serrated polyp of colon Diverticulosis Surgical History History of colonoscopy (~11/20/23) Deviated septum Hx of wisdom tooth extraction Family History Father Diabetes 1.5, managed as type 2 Heart disease PPP (primary proliferative polycythemia) Sister Bipolar disorder with psychotic features Parkinson disease Social History Household Members: Family Housing: House Alcohol intake: current Alcohol intake frequency: 3 or more drinks per day Patient Tobacco Use Status: Former Tobacco user Substance Use Type: Marijuana service: No Current occupational status: employed Cognitive needs: No Hearing needs: No Vision needs: Yes (rx glasses) Questionnaire PHQ-9 Over the last 2 weeks, how often have you been bothered by any of the following problems? 1. Little interest or pleasure in doing things: not at all 2. Feeling down, depressed, or hopeless: not at all 3. Trouble falling or staying asleep, or sleeping too much: not at all 4. Feeling tired or having little energy: not at all 5. Poor appetite or overeating: not at all 6. Feeling bad about yourself - or that you are a failure or have let yourself or your family down: not at all 7. Trouble concentrating on things, such as reading the newspaper or watching television: not at all 8. Moving or speaking so slowly that other people could have noticed. Or the opposite - being so fidgety or restless that you have been moving around a lot more than usual: not at all 9. Thoughts that you would be better off or of hurting yourself in some way: not at all Total score: 0 Depression Screening Interpretation: Negative Depression Screening Done: Yes 16773 - PHQ-9 Billing: Yes Source: Developed by Drs. Isaias Leong, Karla Gallegos, Raza Zamora and colleagues, with an educational endy from [employer]. Thrive Questionnaire Date Thrive assessed: 03/16/25 I am a: Patient What is your living situation today?: I have a steady place to live Within the past 12 months, did the food you bought not last and you didn't have the money to get more?: Never true Within the past 12 months, did you worry whether your food would run out before you got money to buy more?: Never true Do you have trouble paying for medicines?: No Do you have trouble getting transportation to medical appointments?: No Do you have trouble paying your heating and electricity bill?: No Do you have trouble taking care of your child, family member or friend?: No Do you have trouble with day-to-day activities such as bathing, preparing meals, shopping, managing finances, etc.?: No Are you currently unemployed and looking for a job?: No Are you interested in more education?: No Please select the resources that you would like help with: None Currently or been in a relationship where the following occur: No concerns reported THRIVE Score: 0 AUDIT C Alcohol Use Questionnaire (AUDIT-C) 1. How often do you have a drink containing alcohol?: 4 or more times a week 2. How many drinks containing alcohol do you have on a typical day when you are drinking?: 3 or 4 3. How often do you have six or more drinks on one occasion?: Never Total Score: 5 Score Reviewed/Action Taken: No NATASHA-7 AMB Questionnaire NATASHA-7 Date NATASHA - 7 assessed: 03/16/25 Feeling nervous, anxious, or on edge: 0 = Not at all Not being able to stop or control worryin = Not at all Worrying too much about different things: 0 = Not at all Trouble relaxin = Not at all Being so restless that it is hard to sit still: 0 = Not at all Becoming easily annoyed or irritable: 0 = Not at all Feeling afraid as if something awful might happen: 0 = Not at all Total NATASHA-7 score (0-4 normal; 5-9 mild; 10-14 moderate; 15-21 severe): 0 Source: Developed by Drs. Isaias Leong, Karla Gallegos, Raza Zamora and colleagues, with an educational endy from [employer] NATASHA-7 Assessment Billing NATASHA-7 Assessment Tool: NATASHA-7 Assessment 83230 Review of Systems Const Details: - Musculoskeletal: Reports chronic right hip pain and muscle aches after physical activity. - Gastrointestinal: Denies current abdominal pain. - Cardiovascular: Denies chest pain or palpitations. All systems reviewed & are unremarkable except as noted in HPI and below Physical exam (Primary Care) Vital Signs: Last Vital Signs Pulse 54 05/16/25 15:55 Resp 14 05/16/25 15:55 BP 138/80 05/16/25 15:55 Pulse Ox 98 05/16/25 15:55 Oxygen Delivery Method Room Air 05/16/25 15:55 Care Plan Goal for BP management: <140/90 at Goal BMI result Body Mass Index 30.6 BMI Assessment/Plan discussion: High BMI High, discussed plan: lifestyle, weight reduction, dietary, physical activity and alcohol moderation Tobacco/Smoking Status: Tobacco use Status Tobacco use date assessed 03/16/25 05/16/25 15:59 Patient Tobacco Use Status Former Tobacco user 05/16/25 15:59 PHQ-9: PHQ-9 Score PHQ-9: Total score 0 05/16/25 15:59 Depression Screening Interpretation: Negative Thrive Assessment: Date of Thrive Assessment Date Thrive assessed 03/16/25 05/16/25 16:06 Currently or been in a relationship where the following occur: No concerns reported Const Other: Appearance: Alert. Oriented X3. No acute distress. Head: Normal external exam. Normocephalic. Atraumatic. Eyes: Pupils are equal, round, and reactive to light. Extraocular movements intact. Conjunctiva and sclera normal. Eyelids normal. Throat: Pharynx normal. Uvula midline. Moist mucous membranes. Neck: Normal inspection. Neck supple. Full range of motion. Cardiovascular: Normal heart rate and rhythm. Respiratory: No respiratory distress. Painless inspiration. Back: Full range of motion noted. Skin: Skin warm and dry. Normal skin color. Normal skin turgor. No rashes/lesions/lacerations noted. Extremities: No lower extremity edema. Extremities exhibit normal range of motion. Neuro: Oriented X 3. No motor deficit. No sensory deficit. Reflexes normal. Results Reviewed Results Reviewed: - Imaging: X-rays showed degenerative changes in the right hip and mild degenerative spondylosis at L4-S1. - Imaging: CT scan revealed enlarged lymph nodes in the groin and hypodense hepatic lesions. - Imaging: Ultrasound was negative for deep vein thrombosis but showed reactive lymph nodes. - Labs: Liver enzymes, including AST, ALT, and bilirubin, were normal. Coding Level of Care Code Est Pt Level 4 (78244) Complex EM visit Add On G2211 Diagnoses Degenerative arthritis of hip M16.9 Degenerative spondylolisthesis M43.10 Enlarged lymph nodes R59.9 Hypodense mass of liver R16.0 Atherosclerosis of abdominal aorta I70.0 Prominent valve of inferior vena cava Q24.8 Cyst of knee joint M25.869 Additional Codes PHQ-9 - 88361 - PHQ-9 Billing: Yes ([id number]) NATASHA-7 Assessment Billing - NATASHA-7 Assessment Tool: NATASHA-7 Assessment 75997 ([id number]) Assessment & Plan Assessment & Plan (1) Degenerative arthritis of hip: Code(s): M16.9 - Osteoarthritis of hip, unspecified Category: Medical Plan: The patient will continue to manage chronic right hip pain with conservative measures, as he has declined physical therapy. (2) Degenerative spondylolisthesis: Code(s): M43.10 - Spondylolisthesis, site unspecified Category: Medical Plan: The patient will be monitored for progression of degenerative spondylosis, with no immediate intervention planned. (3) Enlarged lymph nodes: Code(s): R59.9 - Enlarged lymph nodes, unspecified Category: Medical Plan: The patient will follow up for further evaluation of reactive lymph nodes, with no immediate concern for malignancy or deep vein thrombosis. (4) Hypodense mass of liver: Code(s): R16.0 - Hepatomegaly, not elsewhere classified Category: Medical Plan: The patient is referred to gastroenterology for further evaluation of hepatic lesions, suspected to be cysts or hemangiomas. (5) Atherosclerosis of abdominal aorta: Code(s): I70.0 - Atherosclerosis of aorta Category: Medical Plan: The patient is referred to vascular surgery for evaluation of mixed plaques, with consideration for cholesterol management to reduce cardiovascular risk. (6) Prominent valve of inferior vena cava: Code(s): Q24.8 - Other specified congenital malformations of heart Category: Medical Plan: The patient is referred to vascular surgery for evaluation of mixed plaques, with consideration for cholesterol management to reduce cardiovascular risk. (7) Cyst of knee joint: Code(s): M25.869 - Other specified joint disorders, unspecified knee Category: Medical Plan: The cyst near the knee will be monitored, with no immediate intervention required. Plan Plan Patient was informed and verbally consented to the use of an ambient scribe for clinic note documentation during this visit. 1. Degenerative Arthritis Of The Right Hip The patient will continue to manage chronic right hip pain with conservative measures, as he has declined physical therapy. 2. Degenerative Spondylosis At L4-S1 The patient will be monitored for progression of degenerative spondylosis, with no immediate intervention planned. 3. Enlarged Lymph Nodes In The Groin The patient will follow up for further evaluation of reactive lymph nodes, with no immediate concern for malignancy or deep vein thrombosis. 4. Hypodense Hepatic Lesions The patient is referred to gastroenterology for further evaluation of hepatic lesions, suspected to be cysts or hemangiomas. 5. Mixed Plaques In The Abdominal Aorta And Iliac Arteries The patient is referred to vascular surgery for evaluation of mixed plaques, with consideration for cholesterol management to reduce cardiovascular risk. 6. Cyst Near The Knee The cyst near the knee will be monitored, with no immediate intervention required. I discussed with the patient the findings of his recent imaging studies, including the presence of degenerative changes in the hip and spine, enlarged lymph nodes, and hepatic lesions. We reviewed the plan to refer him to gastroenterology for further evaluation of the hepatic lesions and to vascular surgery for the mixed plaques in his arteries. I advised him on the importance of managing his cholesterol levels to reduce cardiovascular risk and discussed the potential need for further vascular interventions. Orders: Referrals Vascular Surgery Referral I70.0 - Atherosclerosis of aorta, K55.1 - Chronic vascular disorders of intestine, Q24.8 - Other specified congenital malformations of heart Medications: New atorvastatin (Lipitor) 10 mg PO BEDTIME 90 tabs 3RF Patient Instructions: - Follow up with gastroenterology for evaluation of liver lesions. - Attend vascular surgery consultation for assessment of arterial plaques. - Continue current management for hip pain and monitor for any changes. - Monitor for any new symptoms or changes in existing symptoms and report them promptly.
[2025-05-16 15:55] VITALS: BP 138/80; PULSE 54; RESP 14; O2SAT 98; BMI 30.6
== END 2025-05-16 16:32 | disposition home or self-care (01) ==
LOC: HO.HMCSH 15:37
PROVIDERS: PCP Internal Medicine; Visit Provider Physician Assistant Medical
DX: M16.9 Osteoarthritis of hip, unspecified (principal); M43.10 Spondylolisthesis, site unspecified; R59.9 Enlarged lymph nodes, unspecified; R16.0 Hepatomegaly, not elsewhere classified; I70.0 Atherosclerosis of aorta; Q24.8 Other specified congenital malformations of heart; M25.869 Other specified joint disorders, unspecified knee

== ENCOUNTER → 2025-05-16 15:37 | Outpatient (BNVA) | payer OTHER, SELFPAY | PROVIDERS: PCP Internal Medicine; Visit Provider Physician Assistant Medical | DX: M16.11 Unilateral primary osteoarthritis, right hip (principal); M43.10 Spondylolisthesis, site unspecified; R59.9 Enlarged lymph nodes, unspecified; R16.0 Hepatomegaly, not elsewhere classified; I70.0 Atherosclerosis of aorta; Q24.8 Other specified congenital malformations of heart; R10.9 Unspecified abdominal pain | CPT/HCPCS: 96127 ==

== ENCOUNTER 2025-06-07 11:47 | Outpatient (AMB) | payer OTHER, SELFPAY ==
--- NOTE | 2025-06-07 11:48 | MHC.OFFVIS ---
Vital Signs 06/07/25 11:49 Height 5 ft 8 in Weight 198 lb BMI 30.1 BP 126/78 Blood Pressure Location Rt brachial Position Sitting Pulse 64 Pulse Source Pulse Oximeter Pulse Oximetry (%) 100 Oxygen Delivery Method Room Air Intake Visit Reasons: 6 mos FUV. Rectal bleeding. Intake Note: Est pt for mgmt of rectal bleeding. Not due for colo until Nov 2026. CC: C.O. occasional RLQ + R flank pain. Pt denies any additional sx. Pt also states that his PCP wanted him evaluated for a spot on his liver. Steel Chipper Required: No Accompanied by: Self / Same As Patient Allergies indomethacin (From INDOCIN) Allergy (Unknown, Verified 06/07/25 11:48) HEADACHES, N/V HPI HPI 6 mos FUV. Rectal bleeding.: Details: LAST VISIT: Diverticulosis Sessile serrated polyp of colon Tubular adenoma of colon Plan High-fiber diet discussed with patient. List of food high in fiber given to patient. Patient can also start fiber supplements daily. Recommendation was also made for patient to start probiotics. Patient will drink plenty fluids throughout the day. As mentioned above in HPI sessile serrated polyps and tubular adenoma without high-grade dysplasia or carcinoma found. Recommendation is for patient to return for colonoscopy in 3 years per current guidelines. Patient had total of 6 polyps for small and to medium-size polyps found. Patient will be due for colonoscopy in November of 2026, sooner if clinically necessary. Patient is agreeable to this plan. He will follow-up in our office on as needed basis. He was given the opportunity to ask questions and all questions answered. ? TODAY'S VISIT Patient is here today for requested visit. Patient was sent for evaluation. Patient had CT scan done and it showed multiple lesions on his liver. Patient denies any abdominal pain or discomfort. Superior mesenteric artery atherosclerosis, patient was referred to vascular surgery. Patient reports occasional shortness of breath on exertion. Former tobacco smoker. Currently he is on statins. Patient denies any GI concerning symptoms. Denies any nausea or vomiting. Denies dyspepsia, dysphagia or odynophagia. Denies melena, hematochezia, unintentional weight loss or ribbon like stools. He will be due to go for colonoscopy in 2026, unless clinically necessary patient will be sent for colonoscopy sooner. 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 Atherosclerosis of abdominal aorta Lower abdominal pain Rectal bleeding Pelvic pain Bilateral hip pain Lower back pain Hyperlipidemia Tubular adenoma of colon Sessile serrated polyp of colon Diverticulosis Surgical History History of colonoscopy (~11/20/23) Deviated septum Hx of wisdom tooth extraction Family History Father Diabetes 1.5, managed as type 2 Heart disease PPP (primary proliferative polycythemia) Sister Bipolar disorder with psychotic features Parkinson disease Social History Household Members: Family Housing: House Alcohol intake: current Alcohol intake frequency: 3 or more drinks per day Patient Tobacco Use Status: Former Tobacco user Substance Use Type: Marijuana service: No Current occupational status: employed Cognitive needs: No Hearing needs: No Vision needs: Yes (rx glasses) Review of Systems Const Denies weight gain and Denies weight loss ENT Reports no additional complaints, Denies dysphagia and Denies odynophagia Card Reports no additional complaints Resp Reports no additional complaints GI Denies abdominal pain, Denies belching, Denies melena, Denies bloating, Denies change in bowel habits, Denies dysphagia, Denies excessive flatus, Denies dyspepsia, Denies heartburn, Denies diarrhea, Denies loose stools, Denies nausea, Denies odynophagia and Denies vomiting Reports no additional complaints Musc Reports no additional complaints Neuro Reports no additional complaints Psych Reports no additional complaints Endo Reports no additional complaints Physical Exam Vital Signs: Last Vital Signs Pulse 64 06/07/25 11:49 BP 126/78 06/07/25 11:49 Pulse Ox 100 06/07/25 11:49 Oxygen Delivery Method Room Air 06/07/25 11:49 BMI result Body Mass Index 30.1 Const General: healthy appearing, no acute distress and well developed Nutritional Appearance: obese Orientation/consciousness: patient oriented x3 Resp Effort & Inspection: normal respiratory effort, able to speak in complete sentences, no tracheal deviation and symmetric chest movement Auscultation: clear to auscultation bilaterally Cardio Rate: regular rate GI Inspection: Yes normal to inspection, No distended and Yes obesity Palpation (GI): Soft to palpation, not firm, nontender and No hepatosplenomegaly present Auscultation: normal bowel sounds General: Yes no CVA tenderness Back/Spine/Pelvis Back: no CVA tenderness Skin General skin exam: elasticity normal, turgor normal and dry skin Neuro General: patient oriented x3 Psych Appearance: grossly normal Mental Status: mental status grossly normal Assessment & Plan Assessment & Plan (1) Hypodense mass of liver: Code(s): R16.0 - Hepatomegaly, not elsewhere classified Category: Medical Plan Will send him for MRI of the liver to differentiate lesion, mass, cyst, hemangioma. Atherosclerosis of superior mesenteric artery as well as abdominal aorta. Patient reports shortness of breath with activity, history of hypercholesteremia, currently on statin, history of tobacco use. Referral sent to Cardiology for evaluation of CAD. Patient will follow-up in our office as needed. He was encouraged to call our office if you have any GI concerning symptoms. Patient is agreeable to current plan of care and verbalizes understanding of instructions. He was given the opportunity to ask questions and all questions answered. Thank you for allowing me to participate in his care Orders: Orders MR abdomen wo/w con 06/07/25 R16.0 - Hepatomegaly, not elsewhere classified Referrals Cardiology Referral R06.02 - Shortness of breath Coding Level of Care Code Est Pt Level 3 (07294) Diagnoses Hypodense mass of liver R16.0 Time Spent (min) 30 Comment 20 minutes spent with patient and additional 10 minutes spent reviewing his records
[2025-06-07 11:49] VITALS: BP 126/78; PULSE 64; O2SAT 100; BMI 30.1
== END 2025-06-07 12:20 | disposition home or self-care (01) ==
LOC: HO.HGI 11:47
PROVIDERS: PCP Internal Medicine; Visit Provider Nurse Practitioner Family
DX: R16.0 Hepatomegaly, not elsewhere classified (principal)
CPT/HCPCS: 99213

== ENCOUNTER 2025-07-04 14:54 | Outpatient (AMB) | payer OTHER, SELFPAY ==
[2025-07-04 14:58] VITALS: BMI 30.1
--- NOTE | 2025-07-04 14:58 | MHC.OFFVIS ---
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 Pt states he is eating okay and going to the bathroom okay. Pt has complaints of thigh cramping bilateral LE for a few years. 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 A CT scan performed on May 12, 2025, identified calcified plaques in the iliac, celiac, and SMA arteries. Despite these findings, the patient does not experience typical symptoms such as difficulty eating or weight loss. The patient reports heel pain, which he associates with his footwear and the extensive walking required by his job. The pain is localized towards the Achilles tendon and occurs mainly during walking. He also experiences leg cramps, likely due to overwork, given his active job. He is advised to maintain hydration and ensure adequate vitamin intake to manage these symptoms. The patient has a history of osteoarthritis, contributing to occasional aches and pains, especially after physical activity. 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 Atherosclerosis of abdominal aorta Lower abdominal pain Rectal bleeding Pelvic pain Bilateral hip pain Lower back pain Hyperlipidemia Tubular adenoma of colon Sessile serrated polyp of colon Diverticulosis Surgical History History of colonoscopy (~11/20/23) Deviated septum Hx of wisdom tooth extraction Family History Father Diabetes 1.5, managed as type 2 Heart disease PPP (primary proliferative polycythemia) Sister Bipolar disorder with psychotic features Parkinson disease Social History Household Members: Family Housing: House Alcohol intake: current Alcohol intake frequency: 3 or more drinks per day Patient Tobacco Use Status: Former Tobacco user Substance Use Type: Marijuana service: No Current occupational status: employed Cognitive needs: No Hearing needs: No Vision needs: Yes (rx glasses) Review of Systems Const All systems reviewed & are unremarkable except as noted in HPI and below Reports no additional complaints ENT Reports Normal hearing present Card Denies chest pain, Denies chest pain at rest, Denies chest pain with activity and Denies pedal edema Resp Denies cough GI Denies abdominal pain Musc Denies abnormal gait, Denies muscle cramps and Denies radiating pain into limb Skin/Breast Denies skin ulcer and Denies wounds Neuro Reports Normal hearing present and Denies abnormal gait Psych Reports no additional complaints Physical Exam Vital Signs: BMI result Body Mass Index 30.1 Const General: cooperative, healthy appearing and comfortable Orientation/consciousness: oriented to person, oriented to place and oriented to time HEENT Head: Yes normal to inspection Neck Neck: Yes normal visual inspection Carotids: no bruits Chest Chest palpation & inspection: normal inspection of the chest Resp Effort & Inspection: normal respiratory effort and able to speak in complete sentences Auscultation: clear to auscultation bilaterally, no crackles, no rales, no rhonchi and no wheezes Cardio Other: Palpable bilateral dorsalis pedis pulses Rate: regular rate Rhythm: regular rhythm Heart sounds: S1 normal heart sound present and S2 normal heart sound present Bruits: no carotid bruits Peripheral pulses: Peripheral pulses 2+ throughout GI Inspection: Yes normal to inspection Skin Wounds: no wounds Hair: normal Neuro General: oriented to person, oriented to place and oriented to time Cranial nerves: Yes CN's II-XII intact bilaterally and Yes Normal hearing present Cognition (Neuro): normal cognition Motor exam (neuro): 5/5 motor strength present throughout Extrem Other: venous exam: No significant superficial varicosities or spider telangiectasias, minimal edema General: No clubbing, No cyanosis and No edema Psych Appearance: grossly normal Mental Status: mental status grossly normal Speech and movement: Normal speech and movement present Results Reviewed Results Reviewed: CT scan from 05/12/2025 was reviewed. Assessment & Plan Assessment & Plan (1) Superior mesenteric artery atherosclerosis: Code(s): K55.1 - Chronic vascular disorders of intestine Category: Medical Plan: In short patient is negative for any sort of mesenteric ischemia. At the current time he is tolerating a diet gaining weight no issues. I do believe some of this is standard atherosclerotic disease for someone his age. Imaging was reviewed. I did reassure the patient and explained signs and symptoms of chronic mesenteric ischemia. (2) Atherosclerosis of abdominal aorta: Code(s): I70.0 - Atherosclerosis of aorta Category: Medical Plan: Some atherosclerotic plaque of the aorta and iliacs were noted on CT scan. He does have palpable dorsalis pedis pulses bilaterally and no difficulty walking. He does have occasional heel pain but I do not believe this is vascular in nature. Once again I did provide him reassurance and we went over signs and symptoms of claudication. He will follow up with us on an as-needed basis. Coding Level of Care Code New Pt Level 4 (85392) Diagnoses Superior mesenteric artery atherosclerosis K55.1 Atherosclerosis of abdominal aorta I70.0
== END 2025-07-04 15:22 | disposition home or self-care (01) ==
LOC: HO.HVS 14:55
PROVIDERS: PCP Internal Medicine; Visit Provider Surgery Vascular Surgery
DX: K55.1 Chronic vascular disorders of intestine (principal); I70.0 Atherosclerosis of aorta
CPT/HCPCS: 99204

== ENCOUNTER → 2025-07-11 15:13 | Outpatient (BNV) | payer OTHER, SELFPAY | PROVIDERS: PCP Internal Medicine; Visit Provider Radiology Diagnostic Radiology | DX: K76.89 Other specified diseases of liver (principal) | CPT/HCPCS: 74183 ==

== ENCOUNTER 2025-07-11 15:44 | Outpatient (REF) | payer OTHER, SELFPAY ==
--- NOTE | ~2025-07-11 | MR_ITS ---
EXAMINATION: MR ABDOMEN WITHOUT THEN WITH IV CONTRAST HISTORY: R16.0 - Hepatomegaly, not elsewhere classified COMPARISON: Correlation is made with a CT of the abdomen with contrast dated 05/12/2025. TECHNIQUE: Axial in and out of phase T1-weighted gradient echo, axial diffusion weighted, and axial and coronal HASTE T2 with fat saturation images were obtained through the abdomen. Subsequently, fat suppressed axial and coronal T1-weighted images were obtained after the intravenous administration of 9 mL Gadavist. FINDINGS: Liver: The liver is normal in size. There is no loss of signal intensity in the liver on opposed phase imaging to suggest steatosis. Multiple cysts are seen scattered throughout the liver. The largest cyst in the left lobe measures 1.4 cm. The largest cyst in the right lobe measures 1.4 cm. There is no enhancing liver mass. The hepatic and portal veins are patent. There is no intrahepatic biliary dilatation. Gallbladder/biliary tree: No gallstones are identified. The common bile duct is normal in caliber. No intraluminal filling defects are identified to suggest choledocholithiasis. Spleen: The spleen is unremarkable. Pancreas: The pancreas is unremarkable. There is no enhancing pancreatic mass. The pancreatic duct is normal in caliber. Adrenals: The adrenal glands are unremarkable. Kidneys: The kidneys are unremarkable. There is no hydronephrosis. Lymph nodes: There is no retroperitoneal lymphadenopathy in the upper abdomen. Fluid: There is no ascites in the upper abdomen. Visualized bowel: The visualized small and large bowel loops are unremarkable in appearance. Visualized bones: The visualized bones demonstrate normal marrow signal intensity. MR/MR abdomen wo/w con IMPRESSION: Scattered hepatic cysts as described. Electronically signed by: Isaias Orellana MD 07/12/2025 07:05 AM EDT
== END 2025-07-11 15:45 | disposition home or self-care (01) ==
LOC: HO.MRI 15:44
PROVIDERS: PCP Internal Medicine; Visit Provider Nurse Practitioner Family
DX: R16.0 Hepatomegaly, not elsewhere classified (principal)
CPT/HCPCS: 74183; A9585